=== PATIENT | male | born 1940 | race Caucasian/White ===

== ENCOUNTER 2019-04-13 14:56 | Outpatient (CLI) | payer MEDICARE, BC ==
--- NOTE | 2019-04-13 15:28 | RAD ---
PA AND LATERAL CHEST: HISTORY: Dyspnea. FINDINGS: The heart size is mildly enlarged. The aorta is tortuous. Chronic changes are seen in the lung amin . No lobar consolidation, pneumothoraces, roldan pulmonary edema or pleural effusions are identified. There are degenerative changes in the spine. POS: [facility]
== END 2019-04-13 14:57 | disposition home or self-care (01) ==
LOC: RAD 14:56
PROVIDERS: ATTEND Internal Medicine Pulmonary Disease
DX: R06.00 Dyspnea, unspecified (principal)
CPT/HCPCS: 71046

== ENCOUNTER 2019-05-12 12:09 | Outpatient (CLI) | payer MEDICARE, BC ==
--- NOTE | 2019-05-12 15:03 | PET ---
Radionucleotide PET scan with CT attenuation correction HISTORY: Lung nodule. FINDINGS: Physiologic uptake of radiotracer throughout the enteric system and along each urinary trac t. The oval well-circumscribed soft tissue density nodule at the medial aspect of the left lung apex is 2.1 cm x 1.5 cm greatest diameters. Maximum SUV 28.3. Just to the left of the aortic arch, an oval well-circumscribed lymph node is 2.0 cm x 1.4 cm greates t diameters. Maximum SUV 25.8. No other hypermetabolic lung lesions or mediastinal lymph nodes apparent. At the right inguinal lymph node chain, reactive appearing lymph nodes are present. One of the deep r ight inguinal lymph nodes measures up to 1.8 cm greatest length on the axial images and shows a maximum SUV of 3.4. Adrenal glands are unremarkable without hypermetabolic activity. Nondiagnostic CT attenuation correction images show scattered areas of peripheral pleural pleural thi ckening and calcification and scattered areas of scarring involving each lung. Small hiatal hernia. Diverticula arise from the colon without adjacent inflammation. IMPRESSION: Left upper lobe malignancy with hypermetabolic prevascular lymph node of the mediastinum. The mildly hypermetabolic right inguinal lymph node would be an unusual location for a single distant metastatic focus. The hypermetabolic activity is more likely reactive in nature. Atherosclerosis. Diverticulosis. No evidence of diverticulitis.
== END 2019-05-12 12:10 | disposition home or self-care (01) ==
LOC: PET 12:09
PROVIDERS: ATTEND Internal Medicine Pulmonary Disease
DX: C34.12 Malignant neoplasm of upper lobe, left bronchus or lung (principal); I70.90 Unspecified atherosclerosis; K57.90 Diverticulosis of intestine, part unspecified, without perforation or abscess without bleeding
CPT/HCPCS: 78815; A9552

== ENCOUNTER 2019-06-24 07:14 | Outpatient (CLI) | payer MEDICARE, BC ==
[2019-06-24 12:25] LABS: Hemoglobin 15.7 g/dL (14.0-18.0); Mean Corpuscular HGB CONC 32.4 g/dL (32.0-36.0); Mean Corpuscular Volume 86.5 fL (78.0-98.0); Mean Platelet Volume 7.8 fL (7.4-10.4); Platelet Count 278 thou/uL (130-400); RBC Distribution Width 14.8 % (11.5-14.5); Red Blood Cell (RBC) Count 5.62 mill/uL (4.70-6.10); White Blood Cell (WBC) Count 9.8 thou/uL (4.8-10.8)
[2019-06-24 12:44] LABS: Anion Gap 11 mmol/L (10-20); BUN (Urea Nitrogen) 13 mg/dL (8.4-25.7); Calc. Creatinine Clearance 0 mL/min (70-130); Calcium 9.2 mg/dL (7.8-10.44); Carbon Dioxide 29 mmol/L (23-31); Chloride 103 mmol/L (98-107); Estimated GFR-MDRD 84; Glucose 94 mg/dL (83-110); Potassium 4.3 mmol/L (3.5-5.1); Sodium 139 mmol/L (136-145)
--- NOTE | 2019-06-27 08:48 | EKG ---
Test Reason : Blood Pressure : / mmHG Vent. Rate : 065 BPM Atrial Rate : 065 BPM P-R Int : 214 ms QRS Dur : 076 ms QT Int : 420 ms P-R-T Axes : 087 085 074 degrees QTc Int : 436 ms Sinus rhythm with 1st degree A-V block Otherwise normal ECG Confirmed by ELISSA COHEN ([id number]) on 06/27/2019 8:48:28 AM Referred By: JEROMY Confirmed By:ELISSA COHEN
== END 2019-06-24 07:15 | disposition home or self-care (01) ==
LOC: LABBT 07:14
PROVIDERS: ATTEND Thoracic Surgery (Cardiothoracic Vascular Surgery)
DX: Z01.818 Encounter for other preprocedural examination (principal); R91.8 Other nonspecific abnormal finding of lung field
CPT/HCPCS: 80048; 85027; 93005; 93010

== ENCOUNTER 2019-06-24 11:30 | Inpatient (IN) | payer MEDICARE, BC ==
[2019-06-27] MEDS ORDERED: Clindamycin/D5W 900 mg/50 ml Premix Bag ONE (06:30)
[2019-06-27] MEDS ORDERED: Levofloxacin 500 mg/D5W 100 ml Premix Bag ONE (06:30)
[2019-06-27] MEDS ORDERED: Fentanyl 250 MCG/5 ML VIAL ONE (07:28)
[2019-06-27] MEDS ORDERED: Fentanyl 100 MCG/2 ML VIAL ONE ×2 (07:35→13:26)
[2019-06-27] MEDS ORDERED: Rocuronium Bromide 50 MG/5 ML VIAL ONE (09:47)
[2019-06-27] MEDS ORDERED: Lidocaine 1% PF 5 ML VIAL ONE (09:47)
[2019-06-27] MEDS ORDERED: PROPOFOL 200 MG/20 ML VIAL ONE (09:47)
[2019-06-27] MEDS ORDERED: PHENYLEPHRINE-NS 100 MCG/ML 10 ML SYRINGE ONE (09:47)
[2019-06-27] MEDS ORDERED: Dexamethasone 20 MG/5 ML VIAL ONE (09:47)
[2019-06-27] MEDS ORDERED: Ondansetron PF 4 MG/2 ML Vial ONE (09:47)
[2019-06-27] MEDS ORDERED: EPHEDRINE 25 MG/5 ML SYRINGE ONE (09:47)
[2019-06-27] MEDS ORDERED: Esmolol 100 MG/10 ML VIAL ONE (09:47)
[2019-06-27] MEDS ORDERED: Bupivacaine 0.25% HCL 30 ML VIAL ONE (11:40)
[2019-06-27] MEDS ORDERED: Ropivacaine 0.2% HCl/PF 20 ML ONE (11:41)
[2019-06-27] MEDS ORDERED: Zolpidem Tartrate 5 MG TAB PO PRN ×3 (12:36→13:16)
[2019-06-27] MEDS ORDERED: diphenhydrAMINE 50 MG/ML VIAL IVP PRN ×3 (12:36→13:16)
[2019-06-27] MEDS ORDERED: Naloxone HCl 0.4 mg/ml Vial IVP PRN ×6 (12:36→13:16)
[2019-06-27] MEDS ORDERED: Promethazine HCl 25 MG SUPP PR PRN ×3 (12:36→13:16)
[2019-06-27] MEDS ORDERED: diphenhydrAMINE 50 MG/ML VIAL IM PRN ×3 (12:36→13:16)
[2019-06-27] MEDS ORDERED: diphenhydrAMINE 25 MG CAP PO PRN ×2 (12:36→13:14)
[2019-06-27] MEDS ORDERED: Bupivacaine 0.25% 10 ML VIAL EPIDURAL PRN ×3 (12:36→13:16)
[2019-06-27] MEDS ORDERED: traMADol HCl 50 MG TAB PO PRN (12:36)
[2019-06-27] MEDS ORDERED: Promethazine HCl 25 MG/ML VIAL IM PRN ×3 (12:36→13:16)
[2019-06-27] MEDS ORDERED: Ondansetron PF 4 MG/2 ML Vial IVP PRN ×4 (12:36→13:16)
[2019-06-27] MEDS ORDERED: Norepinephrine 8 MG/0.9% NS 250 ML IVPB PRN (12:38)
[2019-06-27] MEDS ORDERED: HYDROcodone/Acetaminophen 5/325 mg Tablet PO PRN ×2 (12:38)
[2019-06-27] MEDS ORDERED: Phenylephrine 10 MG/NS 250 ML 250 ML IVPB PRN (12:38)
[2019-06-27] MEDS ORDERED: Fentanyl 5 mcg/Bupivacaine 0.075% Cassette 100 ML EPIDURAL SCH ×3 (12:45→13:30)
[2019-06-27] MEDS ORDERED: Communication Order-Pharmacy FS SCH ×6 (12:45→13:30)
--- NOTE | 2019-06-27 12:57 | RAD ---
EXAM: Single view of the chest HISTORY: Status post thoracotomy for a left lung mass COMPARISON: 04/13/2019 FINDINGS: Single view of the chest shows an enlarged cardiomediastinal silhouette. There are 2 left-s ided chest tubes. There is a small left pleural effusion. No pneumothorax is seen. The bones are unremarkable. IMPRESSION: Status post left thoracotomy without evidence of pneumothorax.
--- NOTE | 2019-06-27 15:08 | OP ---
DATE OF PROCEDURE: 06/27/2019 PREOPERATIVE DIAGNOSIS: Left upper lobe mass. 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 ANESTHESIA: General. ESTIMATED BLOOD LOSS: 150. FINDINGS: The patient had complete pleural symphysis, requiring mobilization of about 80% of the lung to allow the procedure to be completed. The lower lobe appeared to be smaller than normal. The mass in the mediastinum was adherent to the phrenic nerve, which was preserved. DESCRIPTION OF PROCEDURE: After adequate anesthesia had been obtained, the patient was placed in the right lateral decubitus position with a double-lumen endotracheal tube. Following prepping and draping, a small incision was made for a trocar; however, I was not comfortable with the clamp entering the pleural space, and for this reason, I converted this to a muscle-sparing posterior lateral thoracotomy. Given the upper lobe lesion, it was elected to go through the 5th intercostal space. Upon entering the intercostal space, the lung was completely adherent. A Kittner was used to mobilize the lung enough to allow placement of a retractor, where a considerable amount of time was spent mobilizing the upper lobe from the surrounding chest wall. After that had been done, attempts to begin mobilizing the lower lobe were begun; however, it was rather densely adherent to the lateral chest wall. It was elected to make another thoracotomy incision through a separate interspace without going through a separate skin incision, and about the 7th or 8th intercostal space was then entered and the lung was then mobilized here using a Kittner. Ultimately, the costophrenic angle was not completely mobilized, but the remainder of the lung was mobilized and the fissures were mobilized. A wedge resection of the mass was performed and this returned adenocarcinoma. At this time, it was not felt that a formal lobectomy would be in his best interest given the rather small residual lower lobe as well as the fact that he had apparent metastasis to the L4 region. The L4 nodes were mobilized and the mass was removed from adjacent to the phrenic nerve, avoiding transection of the phrenic nerve. Following this, a separate 3 firings of the stapler was used to get a further margin around the wedge resection, essentially sparing the lingula. Two chest tubes were then placed, following which the primary thoracotomy incision was reapproximated with interrupted [id number] double-stranded catgut sutures after ensuring good hemostasis within the chest and irrigating the area with water. Muscle layers were loosely reapproximated and the subcutaneous tissue and skin were closed in layers. Job ID: [id number]
[2019-06-27] MEDS: Clindamycin/D5W 900 MG in Premix Bag 1 BAG IVPB SCH ×2 (15:41→21:43)
[2019-06-27] MEDS: diphenhydrAMINE 25 MG CAP PO PRN ×2 (15:41→23:08)
[2019-06-27 16:28] VITALS: BMI 28.3
[2019-06-28] MEDS: Clindamycin/D5W 900 MG in Premix Bag 1 BAG IVPB SCH ×2 (02:00→07:20)
[2019-06-28 03:34] LABS: #Lymphocytes 2.2 thou/uL (1.20-3.40); #Monocytes 1.8 thou/uL (0.11-0.59); #Neutrophils 11.3 thou/uL (1.40-6.50); %Lymphocytes 14.4 % (21.0-51.0); %Monocytes 11.7 % (0.0-10.0); %Neutrophils 73.8 % (42.0-75.0); Hemoglobin 14.1 g/dL (14.0-18.0); Mean Corpuscular HGB CONC 32.6 g/dL (32.0-36.0); Mean Corpuscular Hemoglobin 28.7 pg (27.0-31.0); Platelet Count 221 thou/uL (130-400); RBC Distribution Width 14.9 % (11.5-14.5); Red Blood Cell (RBC) Count 4.92 mill/uL (4.70-6.10); White Blood Cell (WBC) Count 15.3 thou/uL (4.8-10.8)
[2019-06-28 03:53] LABS: Anion Gap 12 mmol/L (10-20); BUN (Urea Nitrogen) 12 mg/dL (8.4-25.7); Calc. Creatinine Clearance 97 mL/min (70-130); Calcium 8.3 mg/dL (7.8-10.44); Carbon Dioxide 26 mmol/L (23-31); Chloride 103 mmol/L (98-107); Estimated GFR-MDRD 84; Glucose 105 mg/dL (83-110); Potassium 4.3 mmol/L (3.5-5.1); Sodium 137 mmol/L (136-145)
[2019-06-28] MEDS: diphenhydrAMINE 25 MG CAP PO PRN (07:40)
[2019-06-28] MEDS ORDERED: Prevnar 13-Val Conj/PF 0.5 ML SYRINGE IM ONE (09:00)
[2019-06-28] MEDS: Benzonatate 100 MG CAP PO SCH ×3 (09:11→21:22)
--- NOTE | 2019-06-28 09:33 | RAD ---
PORTABLE CHEST: Date: 06/28/2019 HISTORY: Post thoracotomy. CCU follow-up. COMPARISON: 06/27/2019. FINDINGS: The two left chest tubes are unchanged. Subcutaneous emphysema over the left chest is unchanged. Stre aky atelectasis in the left lung base again noted. Right lung remains clear and hyperexpanded. IMPRESSION: No acute interval change. POS: [facility]
--- NOTE | 2019-06-28 10:23 | CON ---
DATE OF CONSULTATION: HISTORY OF PRESENT ILLNESS: This gentleman underwent a thoracotomy yesterday, abnormal PET scan dated 05/12/2019 showed a 2 x 1.5 cm lesion in the left apex, not accessible through a bronch or through a CT-guided biopsy in a 2 x 1.5 cm lymph node in the area of the aortic arch. He underwent left upper lobectomy and resection of his mediastinum shows adenocarcinoma. Postop in the ICU. He was initially seen in April 2019 for abnormal x-ray, which do reveal a right lower lobe infiltrate. Subsequently, a CT scan was done, which showed a lesion now in the left lung. Not in the right lung. He received antibiotics prior to his visit in April. When I repeated his chest x-ray in April, I was not able to see any infiltrates. Eventually, CT did show a new left apex lesion. The patient is a two pack-a-day smoker for 50 years. He has quit smoking about seven years ago. PAST MEDICAL HISTORY: Mild COPD, TIA, hypertension, high cholesterol, and reflux. PREVIOUS SURGERIES: Cataract, right knee, retinal surgery, and thoracotomy. HOME MEDICINES: 1. Plavix 75. 2. Losartan. 3. Cozaar 50. 4. Pravastatin 40. ALLERGIES: PENICILLIN AND TETRACYCLINE. SOCIAL HISTORY: Alcohol daily. Smoker as noted. REVIEW OF SYSTEMS: Otherwise negative. Postop in the ICU. PHYSICAL EXAMINATION: VITAL SIGNS: Saturations 93%, pulse 110, respirations 20, and blood pressure 130/80. CHEST: Reveals decreased breath sounds. No wheezing or crackles. CARDIAC: Normal S1 and S2. No gallops. ABDOMEN: No masses. LABORATORY DATA: Unremarkable. ASSESSMENT: Status post lobectomy, adenocarcinoma. PLAN: Await final path. Probably we need input from Oncology. Supportive care and PT. Job ID: [id number]
[2019-06-28] MEDS ORDERED: HYDROcodone/Acetaminophen 5/325 mg Tablet PO PRN (10:59)
[2019-06-28] MEDS ORDERED: traMADol HCl 50 MG TAB PO PRN (11:00)
[2019-06-28] MEDS: Bupivacaine 10 ML in Sodium Chloride 0.9% 90 ML EPIDURAL SCH (12:22)
--- NOTE | 2019-06-28 14:42 | CT ---
EXAM: CT brain without contrast HISTORY: Left-sided weakness and numbness COMPARISON: None TECHNIQUE: Multiple contiguous axial images were obtained and a CT of the brain without contrast. FINDINGS: There are scattered hypodensities in the subcortical and periventricular white matter consi stent with small vessel ischemic disease. There is no evidence of hydrocephalus, intracranial hemorrhage, or extra-axial fluid collection. The calvarium and overlying soft tissues are unremarkable. The visualized paranasal sinuses and masto id air cells are well aerated. IMPRESSION: No evidence of acute intracranial abnormality
[2019-06-28] MEDS: Acetaminophen 325 MG TAB PO PRN (15:09)
[2019-06-28] MEDS: traMADol HCl 50 MG TAB PO PRN ×2 (15:09→21:23)
[2019-06-28] MEDS ORDERED: Aspirin 81 mg Enteric Coated Tablet PO SCH (15:45)
[2019-06-28] MEDS: Ketorolac Tromethamine 30 MG/ML VIAL IVP PRN (17:41)
[2019-06-28] MEDS: BEER 1 CAN PO SCH (17:42)
[2019-06-29] MEDS: Ketorolac Tromethamine 30 MG/ML VIAL IVP PRN ×3 (01:14→16:29)
[2019-06-29] MEDS: Acetaminophen 325 MG TAB PO PRN ×2 (01:14→16:28)
[2019-06-29] MEDS: Bupivacaine 10 ML in Sodium Chloride 0.9% 90 ML EPIDURAL SCH ×2 (01:15→14:54)
[2019-06-29] MEDS: traMADol HCl 50 MG TAB PO PRN ×2 (03:58→12:59)
--- NOTE | 2019-06-29 07:49 | RAD ---
EXAM: CHEST ONE VIEW HISTORY: Post left thoracotomy with segmentectomy. Chest tubes in place. COMPARISON: 06/28/2019 FINDINGS: 2 left-sided thoracostomy tubes remain in place and unchanged in position. Pleural-based density opal g the lateral left chest is seen from the left lung apex to the left lung base. Volume loss at the left lung base is again present. Mild atelectasis right lung base is present. Cardiac silhouette juan j ins enlarged. Subcutaneous emphysema left lateral chest and in the supraclavicular region are present on this exam which has increased from prior study. Cardiac silhouette remains enlarged. No ot her interval change. IMPRESSION: Left-sided thoracostomy tubes remain in place with pleural-based density along the left lateral chest with findings most likely related to volume loss left lung base and patchy parenchymal density left upper lung zone which also could be related to volume loss. Increase in subcutaneous emphysema l ateral left chest is present.
--- NOTE | 2019-06-29 08:19 | PRG ---
DATE OF SERVICE: 06/29/2019 SUBJECTIVE: Kalpesh Hayes is status post thoracotomy and lobectomy. He is having issues with his coughing, but denies obvious shortness of breath. OBJECTIVE: VITAL SIGNS: His saturations are 94% on room air, temperature 97, blood pressure 145/75, respiratory rate 18, and pulse 80. CHEST: No wheezing or crackles. CARDIAC: Normal S1 and S2. No gallops. ABDOMEN: No masses. DIAGNOSTIC DATA: X-ray shows stable findings of loss of volume in the left lung. ASSESSMENT: 1. Status post lobectomy. 2. Adenocarcinoma. 3. Chronic obstructive pulmonary disease. 4. Mild cough. PLAN: Antitussive medication. Continue supportive care, PT. If his cough does not improve, low-dose steroids. We will follow. Job ID: [id number]
[2019-06-29] MEDS: Aspirin 81 mg Enteric Coated Tablet PO SCH (08:53)
[2019-06-29] MEDS: Benzonatate 100 MG CAP PO SCH ×3 (08:56→20:45)
[2019-06-29] MEDS: Enoxaparin Sodium 30 MG/0.3 ML SYRINGE SC SCH (08:57)
[2019-06-29] MEDS: BEER 1 CAN PO SCH ×3 (09:25→18:35)
[2019-06-29] MEDS ORDERED: Losartan 25 MG TAB PO SCH (14:30)
[2019-06-29] MEDS: hydrALAZINE 20 MG/ML VIAL SLOW IVP PRN (14:54)
[2019-06-29] MEDS: Mometasone/Formoterol 120 PUFF INHALER INH SCH (19:30)
[2019-06-29] MEDS: Metoprolol Tartrate 25 MG TAB PO SCH (20:45)
[2019-06-29] MEDS: Atorvastatin Calcium 10 MG TAB PO SCH (20:45)
[2019-06-29] MEDS: HYDROcodone/Acetaminophen 5/325 mg Tablet PO PRN (20:46)
[2019-06-30] MEDS: diphenhydrAMINE 25 MG CAP PO PRN ×2 (01:05→23:03)
[2019-06-30] MEDS: Bupivacaine 10 ML in Sodium Chloride 0.9% 90 ML EPIDURAL SCH ×3 (01:05→22:54)
[2019-06-30] MEDS: HYDROcodone/Acetaminophen 5/325 mg Tablet PO PRN ×4 (01:06→23:04)
--- NOTE | 2019-06-30 07:46 | RAD ---
XR Chest 1 View Portable History: Thoracotomy Comparison: Radiograph prior day Findings: The left-sided thoracostomy tubes are similar. Simultaneous emphysema is similar. Volume lo ss left hemithorax with small effusion. Mild volume loss of the right lung. Cardiac silhouette is similar. Impression: Similar examination of the chest.
[2019-06-30] MEDS: Mometasone/Formoterol 120 PUFF INHALER INH SCH ×2 (08:17→19:42)
[2019-06-30] MEDS ORDERED: Losartan 25 MG TAB PO SCH (09:00)
[2019-06-30] MEDS: BEER 1 CAN PO SCH ×3 (09:40→17:47)
[2019-06-30] MEDS: Aspirin 81 mg Enteric Coated Tablet PO SCH (09:42)
[2019-06-30] MEDS: Benzonatate 100 MG CAP PO SCH ×3 (09:42→20:43)
[2019-06-30] MEDS: Metoprolol Tartrate 25 MG TAB PO SCH ×2 (09:44→20:43)
[2019-06-30] MEDS: Enoxaparin Sodium 30 MG/0.3 ML SYRINGE SC SCH (09:52)
--- NOTE | 2019-06-30 10:55 | PRG ---
DATE OF SERVICE: 06/30/2019 OBJECTIVE: GENERAL: A 78-year-old gentleman. VITAL SIGNS: This morning, temperature 97, pulse 68 respiratory rate 18, and blood pressure 157/87. CHEST: Bilateral rhonchi, crackles, left greater than right. CARDIAC: Normal S1 and S2. No gallops. ABDOMEN: No masses. ASSESSMENT: Status post left upper lobectomy, adenocarcinoma, and mild chronic obstructive pulmonary disease. PLAN: Continue supportive care, PT. Home when chest tube is out. Discussed with Dr. Buchanan, who is going to see the patient regarding lung cancer and appropriate intervention. Job ID: [id number] MTDD
[2019-06-30] MEDS: traMADol HCl 50 MG TAB PO PRN (12:23)
[2019-06-30] MEDS: hydrALAZINE 20 MG/ML VIAL SLOW IVP PRN ×3 (15:13→18:39)
[2019-06-30] MEDS: Atorvastatin Calcium 10 MG TAB PO SCH (20:43)
[2019-07-01] MEDS: hydrALAZINE 20 MG/ML VIAL SLOW IVP PRN (00:13)
[2019-07-01] MEDS ORDERED: BEER 1 CAN PO SCH (00:30)
[2019-07-01] MEDS ORDERED: Lorazepam 2 MG/ML VIAL SLOW IVP SCH ×2 (00:30→22:00)
[2019-07-01] MEDS: Mometasone/Formoterol 120 PUFF INHALER INH SCH ×2 (06:33→19:57)
--- NOTE | 2019-07-01 07:51 | RAD ---
CHEST 1 VIEW: INDICATION: Followup thoracotomy. COMPARISON: Prior exam dated 06/30/2019 at 3:43 a.m. FINDINGS: Left-sided thoracotomy tubes are unchanged. Left-sided pleural collection is unchanged. There are a reas of scattered suspected subsegmental volume in the left lung are similar-appearing. Right lung r emains clear. Cardiomegaly is stable-appearing. No pneumothorax is evident. Subcutaneous emphysema overlying the left chest wall and left neck base persists. Osseous structures unchanged. IMPRESSION: Stable exam. POS: [facility]
--- NOTE | 2019-07-01 08:41 | PRG ---
DATE OF SERVICE: 07/01/2019 SUBJECTIVE: Kalpesh Hayes was little bit of encephalopathic last night. X-ray still shows stable findings with left-sided chest tube in place. He denies any difficulty breathing. OBJECTIVE: VITAL SIGNS: Temperature 98, pulse 70, respiratory rate 16, sats 95% on room air, and blood pressure 168/78. CHEST: Rhonchi. Crackles. CARDIAC: Normal S1-S2. No gallops. ABDOMEN: No masses. IMPRESSION: Chronic obstructive pulmonary disease, mild, status post thoracotomy, adenocarcinoma, as noted. PLAN: PT, supportive care. We will follow. Job ID: [id number]
[2019-07-01] MEDS: HYDROcodone/Acetaminophen 5/325 mg Tablet PO PRN ×2 (08:54→17:50)
[2019-07-01] MEDS: Benzonatate 100 MG CAP PO SCH ×3 (08:55→20:57)
[2019-07-01] MEDS: Losartan 25 MG TAB PO SCH (08:55)
[2019-07-01] MEDS: Amlodipine 5 MG TAB PO SCH (08:55)
[2019-07-01] MEDS: Enoxaparin Sodium 30 MG/0.3 ML SYRINGE SC SCH (08:56)
[2019-07-01] MEDS: Aspirin 81 mg Enteric Coated Tablet PO SCH (08:56)
[2019-07-01] MEDS: Metoprolol Tartrate 25 MG TAB PO SCH ×3 (08:56→20:57)
[2019-07-01] MEDS ORDERED: Diazepam 5 MG TAB PO PRN (09:07)
[2019-07-01] MEDS ORDERED: Diazepam 5 MG TAB PO SCH (09:15)
[2019-07-01] MEDS ORDERED: Thiamine HCl 200 MG/2 ML VIAL IM SCH (09:15)
[2019-07-01] MEDS: traMADol HCl 50 MG TAB PO PRN (10:15)
[2019-07-01] MEDS: [UNRECOGNIZED DRUG - OTHER] PO SCH ×3 (10:51→19:01)
[2019-07-01] MEDS: BEER 1 CAN PO SCH (11:36)
[2019-07-01] MEDS: Bupivacaine 10 ML in Sodium Chloride 0.9% 90 ML EPIDURAL SCH (12:14)
--- NOTE | 2019-07-01 13:46 | PQF ---
CLINICAL DOCUMENTATION IMPROVEMENT CLARIFICATION FORM: ICD-10 Updated PLEASE DO AN ADDENDUM TO THE PROGRESS NOTE WITH ANY DOCUMENTATION UPDATES OR ADDITIONS AND CARRY THROUGH TO DC SUMMARY. THANK YOU. DATE: 07/01/19 ATTN : DR. NAVARRO Please exercise your independent, professional judgment in responding to the clarification form. Clinical indicators are provided on the bottom of this form for your review Please check appropriate box(s): [ ] Encephalopathy: Type: [ ] Acute [ ] Subacute [ ] Chronic Etiology: [ ] Hypertensive [ ] Metabolic [ ] Toxic [ ] Hepatic with Coma [ ] Hepatic w/o Coma [ ] Hypoxic [ ] Septic [ ] Wernickes [ ] Drug induced: [ ] Unspecified [ ] in the setting of underlying dementia [ ] Other (please specify) [ ] Transient Alteration of Awareness [ ] Other diagnosis [ ] Unable to determine In addition, please specify: Present on Admission (POA): [ ] Yes [ ] No [ ] Unable to determine For continuity of documentation, please document condition throughout progress notes and discharge summary. Thank You. CLINICAL INDICATORS - SIGNS / SYMPTOMS / LABS / RESULTS AND LOCATION IN EMR PROGRESS NOTE 07/01: "ENCEPHALOPATHIC LAST NIGHT" NURSES NOTE 06/05: "PT BECOMING INCREASINGLY IMPULSIVE AND CALLED AND SAID HE IS HALLUCINATING A LOT MORE." RISKS: ADENOCARCINOMA WITH METASTASIS (OP NOTE 06/27) ALCOHOL USE (NURSING PREOP RECORD) HYPERTENSION (NURSING PREOP RECORD) TREATMENT: ATIVAN IV NOW DOSE (SEE JUL 03) WHISKEY TID WITH MEALS (JUL) VALIUM PRN (SEE JUL 03-) [employer] Winform Viewer (This form is maintained as a part of the permanent medical record) 2014 [employer]. All Rights Reserved ARSH [email or web address] Office: [phone] [facility]
[2019-07-01] MEDS: Docusate 100 MG CAP PO SCH (20:57)
[2019-07-01] MEDS: Atorvastatin Calcium 10 MG TAB PO SCH (20:58)
--- NOTE | 2019-07-01 21:44 | CON ---
DATE OF CONSULTATION: REASON FOR CONSULTATION: Adenocarcinoma of the lung. HISTORY OF PRESENT ILLNESS: Mr. Hayes is a 78-year-old gentleman with a history of alcohol use and smoking, who had an abnormal x-ray in April 2019. He was referred to Dr. Martinez, who performed a CT scan, it showed a lesion in the left lung. He then underwent a PET scan in early May. There was an oval well-circumscribed soft tissue density in the medial aspect of the left lung apex measuring 2.1 x 1.5 cm, SUV of 28.3, just left to the aortic arch was an oval well-circumscribed lymph node measuring 2.0 x 1.4 cm. SUV was 25.8. There were no other hypermetabolic lung lesions or mediastinal lymph nodes. There was an inguinal lymph node measuring 1.8 cm with SUV of 3.4 and felt to be reactive. The patient was admitted for thoracotomy and wedge resection. He had a complete pleural symphysis requiring mobilization of about 80% of the lung. The mass was the phrenic nerve, which was preserved. He is currently recovering from his surgery. He has a chest tube in place. His pathology revealed invasive adenocarcinoma, papillary prominent tumor measured 2.3 cm in greatest dimension. It invaded the visceral pleura, it was a pT2 lesion. He had an L4 lymph node that was negative for malignancy. Periaortic lymph node was replaced by metastatic adenocarcinoma. He was a pathological [id number] tumor. The patient has 100 pack-year history of smoking. He states he quit over 7 years ago. He is a daily drinker of whiskey and is in fact receiving whiskey in this facility in order to prevent DTs. He denies any complaints at this time other than constipation and pain around the chest tube site. PAST MEDICAL HISTORY: 1. Mild COPD. 2. History of TIA. 3. Hypertension. 4. High cholesterol. 5. Reflux. 6. Alcohol abuse. 7. History of tobacco use. PAST SURGICAL HISTORY: Cataract surgery, knee surgery, retinal surgery, and thoracotomy. ALLERGIES: TO PENICILLIN AND TETRACYCLINE. HOME MEDICATIONS: 1. Plavix. 2. Losartan. 3. Cozaar. 4. Pravastatin. FAMILY HISTORY: Brothers from unknown type of cancer. SOCIAL HISTORY: , lives with his spouse in [place]. 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 He did work at [employer] at one point, daily alcohol. Former smoker. REVIEW OF SYSTEMS: A 10-point review of systems is negative except for noted in HPI. PHYSICAL EXAMINATION: VITAL SIGNS: Temperature 97.6, pulse is 80, respiratory rate 14, blood pressure is 150/90. He is 92% on room air. GENERAL: This is a well-developed, well-nourished male, in no acute distress. HEENT: Normocephalic, atraumatic. Pupils are equal and reactive to light. NECK: Supple. CV: Regular rate and rhythm. LUNGS: Diminished on the left. ABDOMEN: He has a prominent abdomen with bowel sounds are positive. EXTREMITIES: No clubbing or cyanosis. SKIN: No rash. HEMATOLOGIC: No petechiae or purpura. NEUROLOGICAL: Nonfocal. PERTINENT LABS AND X-RAYS: Current WBCs 15.3, hemoglobin 14.1, hematocrit 43.3, platelet count 221,000. He has 73% neutrophils, 14% lymphocytes, 11% monocytes. Sodium is 137, potassium 4.3, chloride 103, CO2 is 26, BUN is 12, creatinine 0.88, glucose 105, calcium 8.3. Radiology, per HPI. ASSESSMENT: Invasive adenocarcinoma of the left lung with positive periaortic lymph node. DISCUSSION: The patient likely has at least stage III disease. He is a candidate for chemotherapy. It was discussed briefly with the patient. He will follow up with Dr. Ruiz in the clinic on July 13 to discuss prognosis and treatment options. Thank you for the consult. We will see him in the outpatient setting. Job ID: [id number]
[2019-07-02] MEDS: Bupivacaine 10 ML in Sodium Chloride 0.9% 90 ML EPIDURAL SCH ×2 (01:12→14:01)
[2019-07-02] MEDS ORDERED: Diazepam 5 MG TAB PO PRN (04:00)
[2019-07-02] MEDS: HYDROcodone/Acetaminophen 5/325 mg Tablet PO PRN ×2 (06:23→18:32)
[2019-07-02] MEDS: Mometasone/Formoterol 120 PUFF INHALER INH SCH ×2 (08:07→19:37)
[2019-07-02] MEDS: Polyethylene Glycol 3350 17 GM Packet PO SCH (08:35)
[2019-07-02] MEDS: Multivitamin W/ Minerals 1 TAB PO SCH (08:36)
[2019-07-02] MEDS: Benzonatate 100 MG CAP PO SCH ×3 (08:36→20:45)
[2019-07-02] MEDS: Magnesium Oxide 400 MG TAB PO SCH (08:36)
[2019-07-02] MEDS: Losartan 25 MG TAB PO SCH (08:36)
[2019-07-02] MEDS: Docusate 100 MG CAP PO SCH ×2 (08:37→20:45)
[2019-07-02] MEDS: Enoxaparin Sodium 30 MG/0.3 ML SYRINGE SC SCH (08:37)
[2019-07-02] MEDS: Folic Acid 1 MG TAB PO SCH (08:37)
[2019-07-02] MEDS: Thiamine 100 MG TAB PO SCH (08:37)
[2019-07-02] MEDS: Aspirin 81 mg Enteric Coated Tablet PO SCH (08:37)
[2019-07-02] MEDS: Amlodipine 5 MG TAB PO SCH (08:37)
[2019-07-02] MEDS: Metoprolol Tartrate 25 MG TAB PO SCH ×2 (08:37→20:45)
[2019-07-02] MEDS: [UNRECOGNIZED DRUG - OTHER] PO SCH ×3 (08:39→16:53)
--- NOTE | 2019-07-02 10:14 | RAD ---
AP CHEST: Date: 07/02/2019 HISTORY: Thoracotomy follow-up. CCU follow-up. COMPARISON: 07/01/2019. FINDINGS: There are two left chest tubes which are unchanged. Evidence of left thoracotomy. Subcutaneous emphys christiane of the left chest. Left basilar infiltrate or atelectasis, and left effusion. Right lung appears clear. Heart is enlarged. IMPRESSION: No evidence of acute interval change. POS: [facility]
[2019-07-02] MEDS ORDERED: guaiFENesin ER 600 MG TAB PO PRN (19:03)
--- NOTE | 2019-07-02 19:04 | PRG ---
DATE OF SERVICE: 07/02/2019 SERVICE: Pulmonary Medicine. INTERVAL HISTORY: The patient's breathing is doing fantastic. Denies any current chest discomfort, nausea, vomiting, or diarrhea. He is not having any jitters or hallucination. He has sipping slowly on a glass of scotch. Otherwise, there has been no interval change to his condition. PHYSICAL EXAMINATION: VITAL SIGNS: Afebrile, pulse 80, blood pressure 145/80, respirations 18, and saturation 93% on room air. GENERAL: The patient is awake and alert, in no apparent distress. LUNGS: Wonderful air entry. Crackles are present. There is no prolonged expiratory phase or wheezing appreciated. HEART: Normal rate and regular. ABDOMEN: Soft, nontender, and nondistended. Bowel sounds are positive. MUSCULOSKELETAL: No cyanosis or clubbing. There is no pitting in the bilateral lower extremities. NEUROLOGIC: Grossly nonfocal. IMAGING DATA: Chest x-ray demonstrates two left-sided thoracostomy tubes are in place with volume loss on that side. No obvious effusions or infiltrates are present. There are diffuse increase opacifications throughout the left lung. ASSESSMENT: 1. Adenocarcinoma of the lung, status post excision with positive lymph node. 2. Chronic obstructive pulmonary disease without current exacerbation. DISCUSSION AND PLAN: The patient is doing fine from respiratory standpoint. Pulmonary will continue to follow, intermittently during this hospital stay. Dr. Martinez will resume care on Thursday, but if the patient gets into trouble through the weekend, please notify me sooner. Job ID: [id number]
[2019-07-02] MEDS: Atorvastatin Calcium 10 MG TAB PO SCH (20:45)
[2019-07-02] MEDS ORDERED: HYDROcodone/Acetaminophen 10/325 mg Tablet PO PRN (21:26)
[2019-07-03] MEDS: HYDROcodone/Acetaminophen 10/325 mg Tablet PO PRN ×2 (02:35→08:06)
[2019-07-03] MEDS: Mometasone/Formoterol 120 PUFF INHALER INH SCH (06:35)
[2019-07-03 07:22] VITALS: TEMP 98
[2019-07-03] MEDS: Polyethylene Glycol 3350 17 GM Packet PO SCH (08:01)
[2019-07-03] MEDS: [UNRECOGNIZED DRUG - OTHER] PO SCH (08:01)
[2019-07-03] MEDS: Thiamine 100 MG TAB PO SCH (08:02)
[2019-07-03] MEDS: Folic Acid 1 MG TAB PO SCH (08:02)
[2019-07-03] MEDS: Magnesium Oxide 400 MG TAB PO SCH (08:02)
[2019-07-03] MEDS: Amlodipine 5 MG TAB PO SCH (08:02)
[2019-07-03] MEDS: Multivitamin W/ Minerals 1 TAB PO SCH (08:02)
[2019-07-03] MEDS: Losartan 25 MG TAB PO SCH (08:02)
[2019-07-03] MEDS: Benzonatate 100 MG CAP PO SCH (08:02)
[2019-07-03] MEDS: Metoprolol Tartrate 25 MG TAB PO SCH (08:03)
[2019-07-03] MEDS: Aspirin 81 mg Enteric Coated Tablet PO SCH (08:03)
[2019-07-03] MEDS: Docusate 100 MG CAP PO SCH (08:03)
[2019-07-03 09:47] VITALS: BP 131/74
== END 2019-07-03 09:58 | disposition home or self-care (01) | DRG 164 ==
LOC: SURG A 06-27 06:00 → CCU 06-27 15:03 → SURG A 06-29 13:40
PROVIDERS: ADMIT Thoracic Surgery (Cardiothoracic Vascular Surgery); ATTEND Thoracic Surgery (Cardiothoracic Vascular Surgery)
PROC: 0BBG0ZZ Excision of Left Upper Lung Lobe, Open Approach (ICD-10-PCS; principal; 2019-06-27)
PROC: 0W9B00Z Drainage of Left Pleural Cavity with Drainage Device, Open Approach (ICD-10-PCS; 2019-06-27)
PROC: 07BD0ZX Excision of Aortic Lymphatic, Open Approach, Diagnostic (ICD-10-PCS; 2019-06-27)
PROC: 07B70ZX Excision of Thorax Lymphatic, Open Approach, Diagnostic (ICD-10-PCS; 2019-06-27)
DX: C34.12 Malignant neoplasm of upper lobe, left bronchus or lung (principal); C77.1 Secondary and unspecified malignant neoplasm of intrathoracic lymph nodes; G93.40 Encephalopathy, unspecified; I10 Essential (primary) hypertension; K21.9 Gastro-esophageal reflux disease without esophagitis; Z86.73 Personal history of transient ischemic attack (TIA), and cerebral infarction without residual deficits; J44.9 Chronic obstructive pulmonary disease, unspecified; Z82.3 Family history of stroke; Z98.49 Cataract extraction status, unspecified eye; Z88.0 Allergy status to penicillin; Z88.8 Allergy status to other drugs, medicaments and biological substances; Z87.891 Personal history of nicotine dependence
CPT/HCPCS: 36415; 70450; 71045; 80048; 85025; 85027; 86850; 86900; 86901; 88305; 88307; 88309; 88313; 88331; 88341; 88342; 93005; J0360; J1100; J1642; J1650; J1885; J1956; J2001; J2060; J2405; J2704; J2795; J3010; J3411; J3490; J7620; Q0163; S0020

== ENCOUNTER 2019-07-14 12:53 | Outpatient (CLI) | payer MEDICARE, BC ==
--- NOTE | 2019-07-14 13:12 | RAD ---
XR Chest Pa Lat @ [facility] HISTORY: Malignant neoplasm upper lobe, bronchus or lung COMPARISON: July 02, 2019 FINDINGS: There is been interval removal of the left-sided chest tubes. Left-sided pleural thickening is seen with the volume loss in the left hemithorax. The heart size is stable. The right lung is clear. There are degenerative changes in the spine. IMPRESSION: No radiographic evidence of acute cardiopulmonary process.
== END 2019-07-14 12:54 | disposition home or self-care (01) ==
LOC: RAD 12:53
PROVIDERS: ATTEND Thoracic Surgery (Cardiothoracic Vascular Surgery)
DX: C34.10 Malignant neoplasm of upper lobe, unspecified bronchus or lung (principal)
CPT/HCPCS: 71046

== ENCOUNTER 2019-07-26 10:41 | Day surgery (SDC) | payer MEDICARE, BC ==
[2019-07-25 13:26] VITALS: BMI 28.1
[~2019-07-26 10:41] MED LIST: Lidocaine 1% PF 5 ML VIAL ONE
[2019-07-26] MEDS ORDERED: Lidocaine 1% w/Epinephrine 1:100K 20 ML VIAL ONE (11:18)
[2019-07-26] MEDS ORDERED: Propofol 500 MG/50 ML VIAL ONE (11:58)
[2019-07-26] MEDS ORDERED: Fentanyl 100 MCG/2 ML VIAL ONE (11:58)
[2019-07-26] MEDS ORDERED: Clindamycin/D5W 900 mg/50 ml Premix Bag ONE (12:10)
--- NOTE | 2019-07-26 14:47 | OP ---
DATE OF PROCEDURE: 07/26/2019 PREOPERATIVE DIAGNOSIS: Stage III lung cancer. PROCEDURE PERFORMED: Right internal jugular MediPort. ANESTHESIA: IV sedation with local. DESCRIPTION OF PROCEDURE: After prepping and draping, the patient had 1% lidocaine with epinephrine infiltrated into the neck and over the anterior chest wall on the right. Following this, the incision was made and ultrasound-guided puncture of the jugular vein was carried out and a wire was then passed under fluoroscopy. A separate incision was then made on the anterior chest wall and a pocket created and after further lidocaine, the tunneler was advanced from the chest into the neck incision. Dilator and sheath were advanced under fluoroscopy, which total 43 seconds for the case. The catheter was then placed through the Peel-Away sheath and then withdrawn into the superior vena cava after the sheath. The catheter was then dissected out slightly in the neck to allow it to lie in a nice curve. Following this, the catheter was connected to the MediPort, which was placed in the pocket, aspirated and then flushed. The wounds were then closed in layers and the patient was to be taken to the Day Stay. Job ID: [id number]
== END 2019-07-26 14:05 | disposition home or self-care (01) ==
LOC: SDC 10:41
PROVIDERS: ATTEND Thoracic Surgery (Cardiothoracic Vascular Surgery)
PROC: 0JH63WZ Insertion of Totally Implantable Vascular Access Device into Chest Subcutaneous Tissue and Fascia, Percutaneous Approach (ICD-10-PCS; principal; 2019-07-26)
PROC: 02HV33Z Insertion of Infusion Device into Superior Vena Cava, Percutaneous Approach (ICD-10-PCS; 2019-07-26)
DX: C34.10 Malignant neoplasm of upper lobe, unspecified bronchus or lung (principal); I10 Essential (primary) hypertension; E78.00 Pure hypercholesterolemia, unspecified; K21.9 Gastro-esophageal reflux disease without esophagitis; J44.9 Chronic obstructive pulmonary disease, unspecified; M19.90 Unspecified osteoarthritis, unspecified site; Z86.73 Personal history of transient ischemic attack (TIA), and cerebral infarction without residual deficits; Z87.891 Personal history of nicotine dependence; Z79.1 Long term (current) use of non-steroidal anti-inflammatories (NSAID); Z79.82 Long term (current) use of aspirin; Z79.899 Other long term (current) drug therapy; Z88.0 Allergy status to penicillin; Z88.1 Allergy status to other antibiotic agents
CPT/HCPCS: 36561; 80048; 85027; C1788; J1642; J2001; J2704; J3010; J3490

== ENCOUNTER 2019-08-16 16:08 | Inpatient (IN) | payer MEDICARE, BC ==
[2019-08-16] MEDS ORDERED: Sodium Chloride 0.9% 1,000 ML IV SCH ×2 (19:00→20:00)
[2019-08-16] MEDS ORDERED: Dextrose 50% Abboject 50 ML SYRINGE SLOW IVP SCH (19:46)
[2019-08-16] MEDS ORDERED: Insulin Regular 300 UNITS/3 ML VIAL IVP SCH (19:46)
[2019-08-16] MEDS ORDERED: Calcium Gluconate 4.6 MEQ in Sodium Chloride 0.9% 100 ML IVPB SCH (19:51)
--- NOTE | 2019-08-16 21:12 | PDOC.HHP ---
Hospitalist HPI - History of Present Illness decreased urination History of Present Illness: 78yo M w/ MHx of stage III lung cancer (diagnosed in 03/2020) s/p chemotherapy ( started two weeks ago) presents for reduced urine output. Patient started chemotherapy two weeks ago and over the past week noticed that his urine output progressively decreased. Today, went to the oncology clinic and was found to have severely reduced renal function compared to july, so was sent to the ED on encounter, lying comfortably in bed and has no complaints. ED Course: In the ED, was found to have MARYLOU with elevated potassium. was started on normal saline and admitted to Telemetry. Hospitalist ROS - Review of Systems Constitutional: denies: fever, chills, sweats, weakness, malaise, other Eyes: denies: pain, vision change, conjunctivae inflammation, eyelid inflammation, redness, other ENT: denies: ear pain, ear discharge, nose pain, nose discharge, nose congestion , mouth pain, mouth swelling, throat pain, throat swelling, other Respiratory: denies: cough, dry, shortness of breath, hemoptysis, SOB with excertion, pleuritic pain, sputum, wheezing, other Cardiovascular: denies: chest pain, palpitations, orthopnea, paroxysmal noc. dyspnea, edema, light headedness, other Gastrointestinal: denies: nausea, vomiting, abdominal pain, diarrhea, constipation, melena, hematochezia, other Genitourinary: reports: retention. denies: dysuria, frequency, incontinence, hematuria Skin: denies: rash, lesions, jason, bruising, other Neurological: denies: weakness, numbness, incoordination, change in speech, confusion, seizures, other Hospitalist History - Past Medical History Source: patient Cardiac: reports: HTN, Hyperlipidemia Heme/Onc: reports: Cancer (stage III lung cancer) Renal/: reports: Benign prostatic enlarg.. denies: Chronic renal insuff, Chronic renal failure, Hematuria Endocrine: denies: Diabetes, Hyperthyroidism, Hypothyroidism - Past Surgical History Past Surgical History: reports: Cataract Removal - Social History Smoking Status: Former smoker (about 60 pack years. 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, multiple glasses daily) Drugs: reports: none - Exam General Appearance: NAD, awake alert Eye: PERRL, scleral icterus Neck: no JVD Heart: RRR, no murmur, no gallops, no rubs, normal peripheral pulses Respiratory: CTAB, no wheezes, no rales, no ronchi, normal chest expansion, no tachypnea, normal percussion Gastrointestinal: soft, non-tender, normal bowel sounds, no palpable masses, no hepatomegaly, no splenomegaly, no bruit Gastrointestinal - other findings: mildly distended Extremities: no edema Neurological: cranial nerve grossly intact, normal sensation to touch, no weakness, no focal deficits, no new deficit Psychiatric: normal affect, normal behavior, A&O x 3 Hospitalist Results - EKG Interpretation EKG: EKG showing sinus rhythm with peaked T-waves Hospitalist H&P A/P - Problem (1) Acute renal failure Status: Acute Assessment and Plan: oliguric MARYLOU chemotherapy unknown; will obtain records renal function severely impaired; normal function in July plan: -urinalysis with microscopy -fractional sodium -gentle IVF; patient currently euvolemic but oliguric; if becomes hypervolemic will stop fluids and diurese -if ATN, may be few week before renal function improves -consult nephrology (2) Lung cancer Code(s): C34.90 - MALIGNANT NEOPLASM OF UNSP PART OF UNSP BRONCHUS OR LUNG Status: Acute Assessment and Plan: will obtain records regarding chemotherapy (3) Hypertension Code(s): I10 - ESSENTIAL (PRIMARY) HYPERTENSION Status: Acute Assessment and Plan: on losartan at home; held due to MARYLOU currently normotensive plan: avoid hypotension resulting in reduced renal perfusion if becomes hypertensive, start amlodipine 5mg PO qd (4) BPH (benign prostatic hyperplasia) Code(s): N40.0 - BENIGN PROSTATIC HYPERPLASIA WITHOUT LOWER URINRY TRACT SYMP Status: Acute Assessment and Plan: -was diagnosed with prostate enlargement but wasnt taking medication for it -post void and if necessary bladder scan with straight cath for > 400cc - Plan Plan: disposition/PPx -full code. is surrogate DVT PPx: enoxeparin GI PPx: no indication ELOS:2 or more midnights
[2019-08-16 22:08] LABS: Potassium 5.3 mmol/L (3.5-5.1)
[2019-08-16 22:14] LABS: Magnesium 0.7 mg/dL (1.6-2.6)
[2019-08-16] MEDS ORDERED: Labetalol HCl 100 MG/20 ML VIAL SLOW IVP PRN (22:41)
[2019-08-16] MEDS ORDERED: Magnesium 2 GM/50 ML 2 GM in Premix Bag 1 BAG IVPB SCH (22:45)
[2019-08-16] MEDS ORDERED: Amlodipine 5 MG TAB PO SCH (22:45)
[2019-08-16 23:55] LABS: Bacteria/HPF None Seen HPF (None Seen); Bilirubin Negative (Negative); Blood, Urine Negative (Negative); Clarity Clear (Clear); Glucose, Urine (Dipstick) 50 mg/dL (Negative); Leukocyte Negative Leu/uL (Negative); Nitrite Negative (Negative); Protein, Urine (Dipstick) Negative (Neg-Trace); RBC/HPF 0-3 HPF (0-3); Squamous Epithelial 0-3 HPF (0-3); Urobilinogen Normal mg/dL (Less than 2); WBC/HPF 0-3 HPF (0-3)
[2019-08-17] LABS: Urine Culture Reflex No No
[2019-08-17 00:12] LABS: Creatinine, Urine 53.41 mg/dL (63-166)
[2019-08-17 05:29] LABS: ALT (SGPT) 13 U/L (8-55); AST (SGOT) 14 U/L (5-34); Alkaline Phosphatase 57 U/L (40-110); Anion Gap 17 mmol/L (10-20); BUN (Urea Nitrogen) 76 mg/dL (8.4-25.7); Bilirubin, Total 0.4 mg/dL (0.2-1.2); Calc. Creatinine Clearance 10 mL/min (70-130); Calcium 8.2 mg/dL (7.8-10.44); Carbon Dioxide 26 mmol/L (23-31); Chloride 89 mmol/L (98-107); Estimated GFR-MDRD 7; Globulin 3.4 g/dL (2.4-3.5); Glucose 119 mg/dL (83-110); Magnesium 1.6 mg/dL (1.6-2.6); Phosphorus 5.3 mg/dL (2.3-4.7); Potassium 5.1 mmol/L (3.5-5.1); Protein, Total 7.4 g/dL (5.8-8.1); Sodium 127 mmol/L (136-145)
[2019-08-17 05:30] LABS: ALT (SGPT) 12 U/L (8-55); AST (SGOT) 13 U/L (5-34); Albumin 3.9 g/dL (3.4-4.8); Alkaline Phosphatase 55 U/L (40-110); Bilirubin, Direct 0.2 mg/dL (0.1-0.3); Bilirubin, Total 0.4 mg/dL (0.2-1.2); Protein, Total 7.3 g/dL (5.8-8.1)
[2019-08-17] MEDS: Amlodipine 5 MG TAB PO SCH (10:27)
[2019-08-17] MEDS: Folic Acid 1 MG TAB PO SCH (10:27)
[2019-08-17] MEDS: Aspirin 81 mg Enteric Coated Tablet PO SCH (10:27)
--- NOTE | 2019-08-17 13:59 | ULT ---
Bilateral renal ultrasound CLINICAL INDICATION: Acute renal insufficiency. COMPARISON: PET/CT exam on 05/12/2019 FINDINGS: Right kidney: There is no evidence of a renal mass, renal calculus, or hydronephrosis seen. The right kidney measures 13.8 cm x 6.7 cm. Left kidney: There is an anechoic cystic appearing structure seen within the region of the renal sinu s fat superior aspect left kidney measuring 2.3 cm. A hypodense lesion was seen in this region on prior PET/CT exam, and this likely represents a hepatic cyst. No hydronephrosis, renal calculus, heri l cortical thinning is seen on the left.The left kidney measures 12.7 cm x 5.8 cm. Urinary bladder: Within normal limits for degree of distention. IMPRESSION: 1. No evidence of hydronephrosis or renal cortical thinning bilaterally. 2. Left renal cyst.
--- NOTE | 2019-08-17 14:53 | PDOC.HOSPP ---
- Subjective Encounter Date: 08/17/19 Encounter Time: 08:00 Subjective: no overnight events. This morning, feels well and has no complaints. remains euvolemic. no available input/output data - Objective Vital Signs & Weight: Vital Signs (12 hours) Temp Pulse Resp BP Pulse Ox 08/17/19 12:10 97.9 F 66 16 154/75 H 96 08/17/19 09:25 97.9 F 65 20 141/85 H 97 08/17/19 03:00 53 L 18 140/67 92 L Weight Weight 192 lb 4.8 oz Result Diagrams: 08/17/19 04:39 Additional Labs: Accuchecks 08/17/19 08/17/19 08/16/19 03:59 03:18 23:13 POC Glucose 103 61 L 107 Hospitalist ROS - Review of Systems Constitutional: denies: fever, chills, sweats, weakness, malaise, other Respiratory: denies: cough, dry, shortness of breath, hemoptysis, SOB with excertion, pleuritic pain, sputum, wheezing, other Cardiovascular: denies: chest pain, palpitations, orthopnea, paroxysmal noc. dyspnea, edema, light headedness, other Gastrointestinal: denies: nausea, vomiting, abdominal pain, diarrhea, constipation, melena, hematochezia, other Genitourinary: denies: dysuria, frequency, incontinence, hematuria, retention, other - Medication Medications: Active Medications Generic Name Dose Route Start Last Admin Trade Name Freq PRN Reason Stop Dose Admin Amlodipine Besylate 5 mg 08/17/19 09:00 08/17/19 10:27 Norvasc PO 5 mg DAILY GRACE Administration Aspirin 81 mg 08/17/19 09:00 08/17/19 10:27 Ecotrin PO 81 mg DAILY GRACE Administration Folic Acid 1 mg 08/17/19 09:00 08/17/19 10:27 Folvite PO 1 mg DAILY GRACE Administration Pantoprazole Sodium 40 mg 08/17/19 09:00 08/17/19 10:26 Protonix PO 40 mg DAILY GRACE Administration - Exam General Appearance: NAD, awake alert Neck: no JVD Heart: RRR, no murmur, no gallops, no rubs, normal peripheral pulses Respiratory: CTAB, no wheezes, no rales, no ronchi, normal chest expansion, no tachypnea, normal percussion Gastrointestinal: soft, non-tender, non-distended, normal bowel sounds, no palpable masses, no hepatomegaly, no splenomegaly, no bruit Extremities: no edema Hosp A/P (1) Acute renal failure Status: Acute (2) Lung cancer Code(s): C34.90 - MALIGNANT NEOPLASM OF UNSP PART OF UNSP BRONCHUS OR LUNG Status: Acute (3) Hypertension Code(s): I10 - ESSENTIAL (PRIMARY) HYPERTENSION Status: Acute (4) BPH (benign prostatic hyperplasia) Code(s): N40.0 - BENIGN PROSTATIC HYPERPLASIA WITHOUT LOWER URINRY TRACT SYMP Status: Acute - Plan per nephrology, increased IVF from 50cc/hr to 100cc/hr postvoid and scans as instructed conitnue to monitor renal function pending records from oncology
--- NOTE | 2019-08-17 15:01 | RAD ---
AP CHEST: Date: 08/17/2019 INDICATION: Fluid overload. Shortness of breath. COMPARISON: 07/14/2019. FINDINGS: The pleural and parenchymal opacities in the left chest are again seen and appear stable. Left apical opacification. Peripheral left fluid and/or pleural thickening along with pleural and parenchymal op acities in the left lung base appear stable in appearance. Small effusions may be present. Right lung remains clear and unchanged. A MediPort catheter is now in place with tip overlying the SVC. IMPRESSION: Pleural and parenchymal opacities in the left chest appear stable from 07/14/2019. POS: [facility]
[2019-08-17] MEDS: Sodium Chloride 0.9% 1,000 ML IV SCH (17:02)
--- NOTE | 2019-08-17 19:42 | CON ---
DATE OF CONSULTATION: 08/17/2019 CONSULTING PHYSICIAN: Moses Donaldson MD REASON FOR CONSULTATION: Acute kidney injury. REASON FOR ADMISSION: Decreased urine output. HISTORY OF PRESENT ILLNESS: This is a 78-year-old male with a history of hypertension; hyperlipidemia; lung cancer, on chemo; came to the hospital with decreased urine output and also elevated creatinine, which was checked at the [facility] and sent to the hospital. The patient feels okay. Denies any symptoms. He was started on IV hydration yesterday. Nephrology consulted. No abdominal pain. No nausea, vomiting, or diarrhea reported. PAST MEDICAL HISTORY: Positive for hypertension, hyperlipidemia, stage III lung cancer, BPH, CKD, hypothyroidism. PAST SURGICAL HISTORY: Cataract removal. HOME MEDICATIONS: 1. Folic acid. 2. Aspirin. 3. Pravastatin. 4. Omeprazole. 5. Mobic. 6. Losartan. ALLERGIES: TO PENICILLIN, TETRACYCLINE. SOCIAL HISTORY: Former smoker and heavy alcohol use. FAMILY HISTORY: No history of kidney disease. REVIEW OF SYSTEMS: CONSTITUTIONAL: Negative for weight loss or gain, ability to conduct usual activities. SKIN: Negative for rash, itching. EYES: Negative for double vision, pain. ENT/MOUTH: Negative for nose bleeding, neck stiffness, pain, tenderness. CARDIOVASCULAR: Negative for palpitations, dyspnea on exertion, orthopnea. RESPIRATORY: Negative for shortness of breath, wheezing, cough, hemoptysis, fever or night sweats. GASTROINTESTINAL: Negative for poor appetite, abdominal pain, heartburn, nausea, vomiting, constipation, or diarrhea. GENITOURINARY: Negative for urgency, frequency, dysuria, nocturia. MUSCULOSKELETAL: Negative for pain, swelling. NEUROLOGIC/PSYCHIATRIC: Negative for anxiety, depression. ALLERGY/IMMUNOLOGIC: Negative for skin rash, bleeding tendency. PHYSICAL EXAMINATION: GENERAL: This is a well-built male, in no apparent distress. VITAL SIGNS: Temperature 97.9, pulse 60, respiratory rate 16, and blood pressure 150/75. HEENT: Atraumatic, normocephalic. Oral mucosa is moist. NECK: Supple. CV: S1 and S2 heard. Rate and rhythm are regular. RESPIRATORY: Clear. MUSCULOSKELETAL: 1+ edema. DERMATOLOGIC: No skin rash. NEUROLOGIC: Alert and awake. PSYCHIATRIC: Normal mood and affect. LABORATORY DATA: Sodium 127, potassium 5.1, BUN 76, creatinine 7.1. ASSESSMENT AND PLAN: 1. Acute kidney injury, most likely from volume depletion. We will check a renal ultrasound. Continue hydration. Avoid nephrotoxins. 2. Edema, controlled. 3. Hyponatremia, better. 4. Hyperkalemia, better. 5. History of hypertension. 6. Continue IV hydration as tolerated. Avoid nephrotoxins. We will check renal ultrasound. We will follow the case along with you. Thank you for the consult. Job ID: [id number]
[2019-08-17] MEDS: Melatonin 3 MG TAB PO PRN (23:59)
[2019-08-18 05:10] LABS: Anion Gap 15 mmol/L (10-20); BUN (Urea Nitrogen) 66 mg/dL (8.4-25.7); Calc. Creatinine Clearance 12 mL/min (70-130); Calcium 7.4 mg/dL (7.8-10.44); Carbon Dioxide 25 mmol/L (23-31); Chloride 95 mmol/L (98-107); Estimated GFR-MDRD 9; Glucose 102 mg/dL (83-110); Magnesium 1.1 mg/dL (1.6-2.6); Potassium 4.4 mmol/L (3.5-5.1); Sodium 131 mmol/L (136-145)
[2019-08-18] MEDS: Aspirin 81 mg Enteric Coated Tablet PO SCH (08:34)
[2019-08-18] MEDS: Amlodipine 5 MG TAB PO SCH (08:34)
[2019-08-18] MEDS: Folic Acid 1 MG TAB PO SCH (08:34)
[2019-08-18] MEDS: Magnesium Oxide 400 MG TAB PO SCH ×2 (11:48→16:02)
--- NOTE | 2019-08-18 11:48 | PRG ---
DATE OF SERVICE: 08/18/2019 SUBJECTIVE: Patient was seen and examined at bedside and overnight events noted. Patient denies any shortness of breath or chest pain or palpitation. No history of nausea or vomiting or diarrhea or fever or chills or cramps. OBJECTIVE: GENERAL: This is a well-built male, in no apparent distress. VITAL SIGNS: Temperature 97.9, pulse 69, respiratory rate 18, blood pressure 167/77. HEENT: Atraumatic, normocephalic. Oral mucosa is moist. Neck: Supple. Cardiovascular: S1, S2 heard. Rate and rhythm regular. Respiratory: Clear to auscultation. Gastrointestinal: Abdomen is soft. Musculoskeletal: No tenderness. No edema. Dermatologic: No skin rash. Neurologic: Alert and awake and oriented x3. No focal neurologic deficits. Moving all the extremities. Psychiatric: Mood and affect normal. LABORATORY DATA: Potassium 4.4, BUN is 66, creatinine is 6.3. ASSESSMENT AND PLAN: 1. Acute kidney injury, getting better most likely from volume depletion. 2. Hypovolemia. 3. Edema, controlled. 4. Hyperkalemia, better. 5. History of hypertension. 6. Continue IV fluids. 7. Hyponatremia, better. Job ID: [id number]
[2019-08-18] MEDS ORDERED: Benzocaine (Dental) 20% 10 gm Tube TOP PRN (14:53)
--- NOTE | 2019-08-18 15:02 | PDOC.HOSPP ---
- Subjective Encounter Date: 08/18/19 Encounter Time: 09:00 Subjective: no overnight events. This morning, feels well and has no complaints. No sob or swelling - Objective Vital Signs & Weight: Vital Signs (12 hours) Temp Pulse Resp BP Pulse Ox 08/18/19 11:40 98.2 F 62 18 149/77 H 95 08/18/19 08:30 97.9 F 69 18 167/77 H 94 L 08/18/19 03:06 97.6 F 72 18 167/89 H 95 Weight Weight 192 lb 4.8 oz I&O: 08/17/19 08/18/19 08/19/19 06:59 06:59 06:59 Intake Total 3046 Output Total 1400 Balance 1646 Result Diagrams: 08/18/19 04:07 Hospitalist ROS - Review of Systems Constitutional: denies: fever, chills, sweats, weakness, malaise, other Respiratory: denies: cough, dry, shortness of breath, hemoptysis, SOB with excertion, pleuritic pain, sputum, wheezing, other Cardiovascular: denies: chest pain, palpitations, orthopnea, paroxysmal noc. dyspnea, edema, light headedness, other Gastrointestinal: denies: nausea, vomiting, abdominal pain, diarrhea, constipation, melena, hematochezia, other Genitourinary: denies: dysuria, frequency, incontinence, hematuria, retention, other - Medication Medications: Active Medications Generic Name Dose Route Start Last Admin Trade Name Freq PRN Reason Stop Dose Admin Amlodipine Besylate 5 mg 08/17/19 09:00 08/18/19 08:34 Norvasc PO 5 mg DAILY GRACE Administration Aspirin 81 mg 08/17/19 09:00 08/18/19 08:34 Ecotrin PO 81 mg DAILY GRACE Administration Folic Acid 1 mg 08/17/19 09:00 08/18/19 08:34 Folvite PO 1 mg DAILY GRACE Administration Sodium Chloride 1,000 mls @ 100 mls/hr 08/17/19 12:39 08/18/19 00:00 Normal Saline 0.9% IV 1,000 mls .Q10H GRACE Administration Magnesium Oxide 400 mg 08/18/19 12:00 08/18/19 11:48 Magnesium Oxide PO 08/18/19 16:01 400 mg 1200,1600 GARCE Administration Melatonin 6 mg 08/17/19 23:45 08/17/19 23:59 Melatonin PO 6 mg HS PRN Administration Insomnia Pantoprazole Sodium 40 mg 08/17/19 09:00 08/18/19 08:34 Protonix PO 40 mg DAILY GRACE Administration - Exam General Appearance: NAD, awake alert Neck: supple, symmetric, no JVD, no thyromegaly, no lymphadenopathy, no carotid bruit Heart: RRR, no murmur, no gallops, no rubs, normal peripheral pulses Respiratory: CTAB, no wheezes, no rales, no ronchi, normal chest expansion, no tachypnea, normal percussion Gastrointestinal: soft, non-tender, non-distended, normal bowel sounds, no palpable masses, no hepatomegaly, no splenomegaly, no bruit Extremities: no edema Hosp A/P (1) Acute renal failure Status: Acute (2) Lung cancer Code(s): C34.90 - MALIGNANT NEOPLASM OF UNSP PART OF UNSP BRONCHUS OR LUNG Status: Acute (3) Hypertension Code(s): I10 - ESSENTIAL (PRIMARY) HYPERTENSION Status: Acute (4) BPH (benign prostatic hyperplasia) Code(s): N40.0 - BENIGN PROSTATIC HYPERPLASIA WITHOUT LOWER URINRY TRACT SYMP Status: Acute - Plan renal function improving - continue management as per nephrology #right molar tooth pain - apply orajel rest of management unchanged
[2019-08-18] MEDS: Sodium Chloride 0.9% 1,000 ML IV SCH ×3 (16:02→20:36)
[2019-08-18] MEDS: Melatonin 3 MG TAB PO PRN (20:36)
[2019-08-19 05:18] LABS: Phosphorus 4.1 mg/dL (2.3-4.7)
[2019-08-19 05:20] LABS: Anion Gap 14 mmol/L (10-20); BUN (Urea Nitrogen) 57 mg/dL (8.4-25.7); Calc. Creatinine Clearance 14 mL/min (70-130); Calcium 7.4 mg/dL (7.8-10.44); Carbon Dioxide 24 mmol/L (23-31); Chloride 98 mmol/L (98-107); Estimated GFR-MDRD 11; Glucose 88 mg/dL (83-110); Potassium 4.4 mmol/L (3.5-5.1); Sodium 132 mmol/L (136-145)
[2019-08-19 05:23] LABS: Magnesium 0.9 mg/dL (1.6-2.6)
[2019-08-19] MEDS ORDERED: Magnesium 2 GM/50 ML 2 GM in Premix Bag 1 BAG IVPB SCH (05:30)
[2019-08-19] MEDS: Sodium Chloride 0.9% 1,000 ML IV SCH ×3 (05:30→16:39)
[2019-08-19] MEDS: Aspirin 81 mg Enteric Coated Tablet PO SCH (08:56)
[2019-08-19] MEDS: Folic Acid 1 MG TAB PO SCH (08:56)
[2019-08-19] MEDS: Amlodipine 5 MG TAB PO SCH (08:56)
--- NOTE | 2019-08-19 14:55 | PDOC.HOSPP ---
- Subjective Encounter Date: 08/19/19 Encounter Time: 08:00 Subjective: no overnight events. This morning, complains fo continued tooth pain. notified him that he has to ask for the orajel in order for nurse to give it to him. otherwise no complaints. - Objective Vital Signs & Weight: Vital Signs (12 hours) Temp Pulse Resp BP BP BP Pulse Ox 08/19/19 11:32 98.1 F 68 20 165/75 H 94 L 08/19/19 08:56 66 180/81 H 08/19/19 08:05 96.5 F L 66 18 180/81 H 95 08/19/19 03:07 98.3 F 68 18 164/78 H 94 L Weight Weight 201 lb 9.6 oz I&O: 08/18/19 08/19/19 08/20/19 06:59 06:59 06:59 Intake Total 3046 3320 237 Output Total 1400 2975 1475 Balance 1646 345 -2719 Result Diagrams: 08/19/19 04:02 Hospitalist ROS - Review of Systems Constitutional: denies: fever, chills, sweats, weakness, malaise, other Respiratory: denies: cough, dry, shortness of breath, hemoptysis, SOB with excertion, pleuritic pain, sputum, wheezing, other Cardiovascular: denies: chest pain, palpitations, orthopnea, paroxysmal noc. dyspnea, edema, light headedness, other Gastrointestinal: denies: nausea, vomiting, abdominal pain, diarrhea, constipation, melena, hematochezia, other Genitourinary: denies: dysuria, frequency, incontinence, hematuria, retention, other - Medication Medications: Active Medications Generic Name Dose Route Start Last Admin Trade Name Freq PRN Reason Stop Dose Admin Amlodipine Besylate 5 mg 08/17/19 09:00 08/19/19 08:56 Norvasc PO 5 mg DAILY GRACE Administration Aspirin 81 mg 08/17/19 09:00 08/19/19 08:56 Ecotrin PO 81 mg DAILY GRACE Administration Benzocaine 0 gm 08/18/19 14:53 08/19/19 11:59 Orajel 20% TOP 10 gm DAILYPRN PRN Administration Tooth or Gum Pain Folic Acid 1 mg 08/17/19 09:00 08/19/19 08:56 Folvite PO 1 mg DAILY GRACE Administration Sodium Chloride 1,000 mls @ 100 mls/hr 08/17/19 12:39 08/19/19 11:31 Normal Saline 0.9% IV 1,000 mls .Q10H GRACE Administration Melatonin 6 mg 08/17/19 23:45 08/18/19 20:36 Melatonin PO 6 mg HS PRN Administration Insomnia Pantoprazole Sodium 40 mg 08/17/19 09:00 08/19/19 08:56 Protonix PO 40 mg DAILY GRACE Administration - Exam General Appearance: NAD, awake alert Heart: RRR, no murmur, no gallops, no rubs, normal peripheral pulses Respiratory: CTAB, no wheezes, no rales, no ronchi, normal chest expansion, no tachypnea, normal percussion Gastrointestinal: soft, non-tender, non-distended, normal bowel sounds, no palpable masses, no hepatomegaly, no splenomegaly, no bruit Extremities: no edema Psychiatric: normal affect, normal behavior, A&O x 3 Hosp A/P (1) Acute renal failure Status: Acute (2) Lung cancer Code(s): C34.90 - MALIGNANT NEOPLASM OF UNSP PART OF UNSP BRONCHUS OR LUNG Status: Acute (3) Hypertension Code(s): I10 - ESSENTIAL (PRIMARY) HYPERTENSION Status: Acute (4) BPH (benign prostatic hyperplasia) Code(s): N40.0 - BENIGN PROSTATIC HYPERPLASIA WITHOUT LOWER URINRY TRACT SYMP Status: Acute - Plan renal function improving - continue management as per nephrology #right molar tooth pain - apply orajel rest of management unchanged
[2019-08-19] MEDS: Magnesium 2 GM/50 ML 2 GM in Premix Bag 1 BAG IVPB SCH ×2 (15:57→18:44)
[2019-08-19] MEDS: Melatonin 3 MG TAB PO PRN (20:38)
[2019-08-20] MEDS: Sodium Chloride 0.9% 1,000 ML IV SCH ×2 (00:02→16:34)
[2019-08-20 05:18] LABS: Anion Gap 15 mmol/L (10-20); BUN (Urea Nitrogen) 43 mg/dL (8.4-25.7); Calc. Creatinine Clearance 19 mL/min (70-130); Calcium 7.8 mg/dL (7.8-10.44); Carbon Dioxide 24 mmol/L (23-31); Chloride 97 mmol/L (98-107); Estimated GFR-MDRD 14; Glucose 113 mg/dL (83-110); Magnesium 2.2 mg/dL (1.6-2.6); Potassium 4.3 mmol/L (3.5-5.1); Sodium 132 mmol/L (136-145)
[2019-08-20] MEDS: Folic Acid 1 MG TAB PO SCH (09:10)
[2019-08-20] MEDS: Aspirin 81 mg Enteric Coated Tablet PO SCH (09:10)
[2019-08-20] MEDS: Amlodipine 5 MG TAB PO SCH (09:10)
--- NOTE | 2019-08-20 14:44 | PDOC.HOSPP ---
- Subjective Encounter Date: 08/20/19 Subjective: Feeling better - Objective Vital Signs & Weight: Vital Signs (12 hours) Temp Pulse Resp BP BP Pulse Ox 08/20/19 12:32 97.5 F L 70 16 159/77 H 08/20/19 09:10 63 08/20/19 09:05 99 F 63 16 152/76 H 93 L 08/20/19 08:00 93 L 08/20/19 04:00 99.7 F H 63 16 153/65 H 94 L Weight Weight 200 lb 3.2 oz I&O: 08/19/19 08/20/19 08/21/19 06:59 06:59 06:59 Intake Total 3320 777 Output Total 1053 9846 Balance 345 -4115 Result Diagrams: 08/20/19 04:01 Hospitalist ROS - Medication Medications: Active Medications Generic Name Dose Route Start Last Admin Trade Name Freq PRN Reason Stop Dose Admin Amlodipine Besylate 5 mg 08/17/19 09:00 08/20/19 09:10 Norvasc PO 5 mg DAILY GRACE Administration Aspirin 81 mg 08/17/19 09:00 08/20/19 09:10 Ecotrin PO 81 mg DAILY GRACE Administration Benzocaine 0 gm 08/18/19 14:53 08/19/19 11:59 Orajel 20% TOP 10 gm DAILYPRN PRN Administration Tooth or Gum Pain Folic Acid 1 mg 08/17/19 09:00 08/20/19 09:10 Folvite PO 1 mg DAILY GRACE Administration Sodium Chloride 1,000 mls @ 75 mls/hr 08/19/19 16:19 08/20/19 00:02 Normal Saline 0.9% IV 1,000 mls .[id number] GRACE Administration Melatonin 6 mg 08/17/19 23:45 08/19/19 20:38 Melatonin PO 6 mg HS PRN Administration Insomnia Pantoprazole Sodium 40 mg 08/17/19 09:00 08/20/19 09:10 Protonix PO 40 mg DAILY GRACE Administration - Exam General Appearance: awake alert ENT: normocephalic atraumatic Neck: supple Respiratory: normal chest expansion, no tachypnea Gastrointestinal: soft Neurological: cranial nerve grossly intact, no focal deficits Hosp A/P (1) Acute renal failure Status: Acute (2) BPH (benign prostatic hyperplasia) Code(s): N40.0 - BENIGN PROSTATIC HYPERPLASIA WITHOUT LOWER URINRY TRACT SYMP Status: Acute (3) Hypertension Code(s): I10 - ESSENTIAL (PRIMARY) HYPERTENSION Status: Acute - Plan Acute kidney injury responding to IV hydration. Likely prerenal. Creatinine level dropped to 4.24. Continue IV fluids. Appreciate nephrology.
[2019-08-20] MEDS ORDERED: Acetaminophen 325 MG TAB PO PRN (18:08)
--- NOTE | 2019-08-20 18:27 | PRG ---
DATE OF SERVICE: 08/20/2019 SUBJECTIVE: Patient was seen and examined at bedside and overnight events noted. Patient denies any shortness of breath or chest pain or palpitation. No history of nausea or vomiting or diarrhea or fever or chills or cramps. OBJECTIVE: General: This is a well-built male, in no apparent distress. Vital Signs: Temperature is 99.0. Heart rate 63. Respiratory rate . Blood pressure 152/76. HEENT: Atraumatic, normocephalic. Oral mucosa is moist. Neck: Supple. Cardiovascular: S1, S2 heard. Rate and rhythm regular. Respiratory: Clear to auscultation. Gastrointestinal: Abdomen is soft. Musculoskeletal: No tenderness. No edema. Dermatologic: No skin rash. Neurologic: Alert and awake and oriented x3. No focal neurologic deficits. Moving all the extremities. Psychiatric: Mood and affect normal. LABORATORY DATA: Potassium 4.3, BUN is 43, and creatinine is 4.2. ASSESSMENT AND PLAN: 1. Acute kidney injury on chronic kidney disease, stage 3. Creatinine getting better. 2. Edema. 3. Hypertension. 4. Hyperlipidemia. 5. Hyponatremia, better. Overall labs are getting better. Job ID: [id number]
[2019-08-20] MEDS: Melatonin 3 MG TAB PO PRN (20:07)
[2019-08-21 00:24] LABS: Anion Gap 14 mmol/L (10-20); BUN (Urea Nitrogen) 40 mg/dL (8.4-25.7); Calc. Creatinine Clearance 22 mL/min (70-130); Calcium 7.9 mg/dL (7.8-10.44); Carbon Dioxide 25 mmol/L (23-31); Chloride 97 mmol/L (98-107); Estimated GFR-MDRD 16; Glucose 103 mg/dL (83-110); Magnesium 1.7 mg/dL (1.6-2.6); Phosphorus 3.6 mg/dL (2.3-4.7); Sodium 132 mmol/L (136-145)
[2019-08-21 04:57] LABS: Anion Gap 15 mmol/L (10-20); BUN (Urea Nitrogen) 36 mg/dL (8.4-25.7); Calc. Creatinine Clearance 23 mL/min (70-130); Calcium 7.8 mg/dL (7.8-10.44); Carbon Dioxide 21 mmol/L (23-31); Chloride 97 mmol/L (98-107); Estimated GFR-MDRD 18; Glucose 125 mg/dL (83-110); Potassium 3.5 mmol/L (3.5-5.1); Sodium 129 mmol/L (136-145)
[2019-08-21] MEDS: Sodium Chloride 0.9% 1,000 ML IV SCH (06:18)
[2019-08-21 06:28] VITALS: BMI 28.6
[2019-08-21] MEDS: Amlodipine 5 MG TAB PO SCH (08:20)
[2019-08-21] MEDS: Aspirin 81 mg Enteric Coated Tablet PO SCH (08:20)
[2019-08-21] MEDS: Folic Acid 1 MG TAB PO SCH (08:20)
[2019-08-21 11:35] VITALS: BP 156/70; TEMP 99
--- NOTE | 2019-08-21 15:42 | PRG ---
DATE OF SERVICE: 08/21/2019 SUBJECTIVE: Patient was seen and examined at bedside and overnight events noted. Patient denies any shortness of breath or chest pain or palpitation. No history of nausea or vomiting or diarrhea or fever or chills or cramps. OBJECTIVE: General: This is a well-built male in no apparent distress. Vital Signs: Temperature 99.0, pulse 62, respiratory rate of 18, blood pressure 156/70. HEENT: Atraumatic, normocephalic. Oral mucosa is moist. Neck: Supple. Cardiovascular: S1, S2 heard. Rate and rhythm regular. Respiratory: Clear to auscultation. Gastrointestinal: Abdomen is soft. Musculoskeletal: No tenderness. No edema. Dermatologic: No skin rash. Neurologic: Alert and awake and oriented x3. No focal neurologic deficits. Moving all the extremities. Psychiatric: Mood and affect normal. LABORATORY DATA: Potassium 3.5, BUN is 36, and creatinine is 3.4. ASSESSMENT AND PLAN: 1. Acute kidney injury on chronic kidney stage 3, getting better. 2. Edema. 3. Hypertension. 4. Hyponatremia. Follow up with the clinic in 1-2 weeks. Job ID: [id number]
--- NOTE | 2019-08-21 18:58 | DIS ---
DATE OF ADMISSION: 08/16/2019 DATE OF DISCHARGE: 08/21/2019 DISCHARGE DIAGNOSES: 1. Acute kidney injury superimposed on chronic kidney disease stage 3. 2. Hypertension. 3. Hyperlipidemia. 4. Hyponatremia. 5. Edema. DISCHARGE MEDICATIONS: 1. Amlodipine 5 mg orally daily. 2. Aspirin 81 mg orally daily. 3. Folic acid 1 mg orally daily. 4. Omeprazole 20 mg orally daily. 5. Pravastatin 40 mg orally nightly. The patient was instructed not to take meloxicam or losartan. HISTORY OF PRESENT ILLNESS AND BRIEF HOSPITAL COURSE: The patient is a 78-year-old male with past medical historyof stage III lung cancer, status post chemotherapy started 2 weeks ago, who presented to the hospital with reduced urine output. The patient stated that over the past 2 weeks since he has received his chemotherapy, his urine output decreased progressively. He followed up at his oncology clinic and his creatinine level was found to be significantly elevated compared to earlier in July and he was sent to the emergency department. The patient was admitted to the hospital with impression of oliguric acute kidney injury, likely related to ATN secondary to volume depletion and NSAIDs use at home. The patient was managed with IV hydration, which led to gradual improvement of his creatinine level over the duration of his hospital stay from 7.53 on the day of admission to 3.4. He also had hyponatremia and hyperkalemia on presentation, which both improved throughout his hospital stay with hydration and improvement in his kidney function. At this time, the patient is stable for discharge with outpatient followup with Oncology and Nephrology. Job ID: [id number]
== END 2019-08-21 14:35 | disposition home or self-care (01) | DRG 683 ==
LOC: ERS 16:08 → 2NO 17:33
PROVIDERS: ADMIT Internal Medicine; ATTEND Internal Medicine
DX: N17.0 Acute kidney failure with tubular necrosis (principal); C34.90 Malignant neoplasm of unspecified part of unspecified bronchus or lung; E87.1 Hypo-osmolality and hyponatremia; E86.9 Volume depletion, unspecified; N18.3 Chronic kidney disease, stage 3 (moderate); I12.9 Hypertensive chronic kidney disease with stage 1 through stage 4 chronic kidney disease, or unspecified chronic kidney disease; E78.5 Hyperlipidemia, unspecified; T39.395A Adverse effect of other nonsteroidal anti-inflammatory drugs [NSAID], initial encounter; E87.5 Hyperkalemia; E86.1 Hypovolemia; N40.0 Benign prostatic hyperplasia without lower urinary tract symptoms; E03.9 Hypothyroidism, unspecified; K08.89 Other specified disorders of teeth and supporting structures; R60.9 Edema, unspecified; Z79.899 Other long term (current) drug therapy; Z79.82 Long term (current) use of aspirin; Z79.1 Long term (current) use of non-steroidal anti-inflammatories (NSAID); Z88.1 Allergy status to other antibiotic agents; Z88.0 Allergy status to penicillin; Z87.891 Personal history of nicotine dependence; Z98.49 Cataract extraction status, unspecified eye
CPT/HCPCS: 36415; 36416; 71045; 76770; 80048; 80053; 81001; 82550; 82570; 83735; 84100; 84300; 93005; 93010; 99284; J1642; J1815; J3475; J3490

== ENCOUNTER 2019-09-12 16:41 | Inpatient (IN) | payer MEDICARE, BC ==
[2019-09-12 18:20] VITALS: BMI 25.2
[2019-09-12] MEDS ORDERED: Acetaminophen 325 MG TAB PO PRN (18:20)
[2019-09-12] MEDS ORDERED: Ondansetron PF 4 MG/2 ML Vial IVP PRN (19:27)
--- NOTE | 2019-09-12 19:37 | PDOC.HHP ---
Hospitalist HPI - History of Present Illness joint pain History of Present Illness: This is a 78 year old male patient with past medical history of lung cancer s/p resection in July , atrial fibrillation, hypertension, hyperlipidemia who presented to the ER with joint pains and unsteadiness. Patient states his joint pain in his arms started about four to five days ago. His pain is mostly in his right hand and stated that he was unable to hold a coffee cup this morning due to the pain. He has no numbness in his arms or legs. He has no swelling other than in his right hand. He did not fall but states he feels dizzy when he sits on the edge of the bed. He has been feeling unsteady while walking but has not actually fell or pass out. He denies headache, slurred speech or changes in his vision. He denies chest pain, palpitations, cough, shortness of breath, abdominal pain, nausea, vomiting, or diarrhea. ED Course: Patient went to [facility] ER. He was found to have normal vitals except for pulse of 121. He was noted to be in afib with RVR. Per patient, he states he remembers being diagnosed with afib 15 years ago but does not take treatment for it. Labs showed a WBC of 15, creatinine of 1.79, calcium 6.9, phos 4.8. CT brain showed no acute findings. Chest X ray was normal. He was given 25 fentanyl, aspirin 325 mg, metoprolol 5Pe mg, lovenox 80 mg, 1 gram of calcium gluconate and 1L fluid. Heart rate improved to 80 and patient evaluated for TIA/stroke workup. Per ER doctor, patient's recent PET scan was negative. Hospitalist ROS - Review of Systems Constitutional: denies: fever, chills ENT: denies: ear pain, ear discharge Respiratory: denies: cough, dry, shortness of breath Cardiovascular: denies: chest pain, palpitations, orthopnea Gastrointestinal: denies: nausea, vomiting, abdominal pain Genitourinary: denies: dysuria, frequency Musculoskeletal: reports: other (right hand pain) - Medication Medications: Folic aci d1 mg daily Amlodipine 5 mg daily Losartan 50 mg daily (patient unsure) Fish oil Omeprazole 20 mg daily Aspirin 81 mg daily Pravastatin 40 mg po qhs Hospitalist History - Past Medical History Cardiac: reports: AFIB, HTN, Hyperlipidemia Heme/Onc: reports: Cancer (stage III lung cancer) Renal/: reports: Benign prostatic enlarg.. denies: Chronic renal insuff, Chronic renal failure, Hematuria - Past Surgical History Past Surgical History: reports: Cataract Removal Other Surgical History: Retinal surgery Left thoracotomy Tonsillectomy - Social History Smoking Status: Former smoker (Smoked for > 50 years, quit at 76) Alcohol: reports: Heavy (daily vodka drinker, multiple glasses daily) Drugs: reports: none - Exam General Appearance: NAD, awake alert Eye: PERRL, anicteric sclera ENT: normocephalic atraumatic, no oropharyngeal lesions ENT - other findings: hard of hearing on the left ear Neck: no JVD Heart: no murmur, no gallops, no rubs, irregular Respiratory: CTAB, no wheezes, no rales, no ronchi Gastrointestinal: soft, non-tender, non-distended, normal bowel sounds Extremities: no cyanosis, no clubbing Extremities - other findings: right hand tenderness, mild swelling. Some pain moving right hand Neurological: normal sensation to touch Neurological - other findings: RUE 4/5, LUE 5/5, RLE 5/5, LLE 5/5 Musculoskeletal: normal tone, normal strength, no muscle wasting Psychiatric: A&O x 3, oriented to person Hospitalist Results - EKG Interpretation EKG: atrial fibrillation Hospitalist H&P A/P - Plan Plan: This is a 78 year old male with history of lung cancer presenting with joint pains, gait unsteadiness, and afib with RVR #Right hand pain/weakness #Gait instability - will check right hand Xray due to tenderness on exam. Patient has mild RUE weakness, no shoulder or elbow tenderness. CT head negative. Will check MRI brain due to poor problems with balance - check orthostatics - PT/OT consult - will consider neuro consult - continue aspirin 8 1mg and atorvastatin Afib with RVR - s/p metoprolol 5 mg in the ER and therapeutic lovenox - will check an ECHO - currently rate controlled - may need anticoagulation but seems to be fall risk currently Lung cancer s/p thoracotomy - s/p recent chemo - per ER doctor PET scan was negative CKD - pt reports that he was on chemotherapy agent that destroyed his kidney and is currently on alternative chemo regimen - creatinine 1.67 which is better than previously - UA negative Hypertension - controlled - will hold amlodipine for now DVT prophylaxis: Code status: DNI
[2019-09-12] MEDS ORDERED: Metoprolol Tartrate 5 MG/5 ML VIAL IVP PRN (20:00)
[2019-09-12] MEDS ORDERED: Potassium Chloride 20 MEQ TAB PO SCH (20:30)
[2019-09-12] MEDS: Atorvastatin Calcium 10 MG TAB PO SCH (20:53)
[2019-09-12] MEDS ORDERED: Atorvastatin Calcium 40 MG TAB PO SCH (21:00)
[2019-09-12] MEDS ORDERED: Prevnar 13-Val Conj/PF 0.5 ML SYRINGE IM ONE (21:00)
[2019-09-12] MEDS ORDERED: Magnesium Sulfate 2 GM in Sodium Chloride 0.9% 100 ML IVPB SCH (21:30)
[2019-09-13 00:55] LABS: Phosphorus 4.5 mg/dL (2.3-4.7)
[2019-09-13 00:57] LABS: Magnesium 1.7 mg/dL (1.6-2.6); Potassium 4.1 mmol/L (3.5-5.1)
[2019-09-13 05:21] LABS: #Basophils 0.1 thou/uL (0.0-0.2); #Eosinphils 0.2 thou/uL (0.0-0.7); #Lymphocytes 1.9 thou/uL (1.20-3.40); #Monocytes 0.1 thou/uL (0.11-0.59); #Neutrophils 6.5 thou/uL (1.40-6.50); %Basophils 0.7 % (0.0-1.0); %Eosinophils 2.5 % (0.0-10.0); %Lymphocytes 21.7 % (21.0-51.0); %Monocytes 0.6 % (0.0-10.0); %Neutrophils 74.5 % (42.0-75.0); Hemoglobin 10.6 g/dL (14.0-18.0); Mean Corpuscular HGB CONC 32.4 g/dL (32.0-36.0); Mean Corpuscular Hemoglobin 27.8 pg (27.0-31.0); Mean Platelet Volume 8.4 fL (7.4-10.4); Platelet Count 248 thou/uL (130-400); Red Blood Cell (RBC) Count 3.81 mill/uL (4.70-6.10); White Blood Cell (WBC) Count 8.7 thou/uL (4.8-10.8)
[2019-09-13] MEDS: HYDROcodone/Acetaminophen 5/325 mg Tablet PO PRN ×2 (05:34→20:59)
[2019-09-13 05:35] LABS: Anion Gap 17 mmol/L (10-20); BUN (Urea Nitrogen) 38 mg/dL (8.4-25.7); Calc. Creatinine Clearance 46 mL/min (70-130); Calcium 6.7 mg/dL (7.8-10.44); Carbon Dioxide 21 mmol/L (23-31); Cardiac Risk 5.2 (Less than 4.5); Chloride 103 mmol/L (98-107); Cholesterol 136 mg/dl (< 200 Desired); Estimated GFR-MDRD 42; Glucose 102 mg/dL (83-110); HDL Cholesterol 26 mg/dL (>60 Neg Risk); LDL Cholesterol, Calculated 92 mg/dL; Potassium 4.3 mmol/L (3.5-5.1); Sodium 137 mmol/L (136-145); Triglycerides 90 mg/dL (Less than 150)
[2019-09-13 05:57] LABS: CKMB 1.3 ng/mL (0-6.6)
--- NOTE | 2019-09-13 08:42 | MRI ---
Exam: Brain MRI without contrast HISTORY: Right arm weakness, unsteadiness. COMPARISON: None FINDINGS: Calvarial marrow signal intensity: Appropriate T1 marrow signal intensity. Midline brain parenchymal structures are unremarkable Gradient echo sequence: No hemorrhage Brain parenchyma: No mass, mass effect or midline shift. Brain volume, age-appropriate. Brain volume, age-appropriate. Cortical gonzalez-white matter differentiation: Preserved Restricted diffusion: Central arterial flow voids are maintained. Absent restricted diffusion White matter signal intensities: T2, FLAIR white matter hyperintensities due to chronic small vessel ischemic changes Sinuses: Adequate aeration of the paranasal sinuses and mastoid air cells. IMPRESSION: 1. Absent restricted diffusion. No acute infarct. 2. Brain volume, age-appropriate. Chronic small vessel ischemic changes of the white matter.
[2019-09-13] MEDS ORDERED: Enoxaparin Sodium 40 MG/0.4 ML SYRINGE SC SCH (09:00)
[2019-09-13] MEDS ORDERED: Aspirin 81 mg Enteric Coated Tablet PO SCH (09:00)
[2019-09-13] MEDS ORDERED: Fish Oil 1,000 MG CAP PO SCH (09:00)
[2019-09-13] MEDS: Folic Acid 1 MG TAB PO SCH (09:14)
[2019-09-13] MEDS: Fish Oil 1,000 MG CAP PO SCH (09:15)
[2019-09-13 10:19] LABS: Bacteria/HPF None Seen HPF (None Seen); Bilirubin Negative (Negative); Blood, Urine Negative (Negative); Clarity Clear (Clear); Glucose, Urine (Dipstick) Normal (Negative); Leukocyte Negative Leu/uL (Negative); Nitrite Negative (Negative); Protein, Urine (Dipstick) 20 mg/dL (Neg-Trace); RBC/HPF 0-3 HPF (0-3); Squamous Epithelial 0-3 HPF (0-3); Urobilinogen Normal mg/dL (Less than 2)
[2019-09-13 10:23] LABS: Urine Culture Reflex Yes Yes
[2019-09-13] MEDS ORDERED: Magnesium Sulfate 1 GM, Admixture Fee 1 EACH in Sodium Chloride 0.9% 100 ML IVPB SCH (11:00)
--- NOTE | 2019-09-13 12:04 | RAD ---
RIGHT HAND 2 VIEWS: INDICATION: Right hand tenderness. COMPARISON: None. FINDINGS: There is prominent 1st CMC osteoarthrosis. There is scattered moderate IP osteoarthrosis. No acute fracture or subluxation is evident. IMPRESSION: Scattered osteoarthrosis of the right hand. POS: BH
--- NOTE | 2019-09-13 16:46 | PDOC.HOSPP ---
- Subjective Encounter Date: 09/13/19 Encounter Time: 16:45 Subjective: The patient is doing well. Hand cramps have improved. He states he walked with PT and did okay with a walker. Per nursing, his heart rate increases to 150 on ambulation. No chest pain or palpitations - Objective Vital Signs & Weight: Vital Signs (12 hours) Temp Pulse Pulse Pulse Pulse Resp BP 09/13/19 15:30 98 F 63 16 09/13/19 14:03 87 102 H 88 107/72 09/13/19 11:48 98.4 F 62 16 09/13/19 08:19 09/13/19 07:59 98.4 F 87 16 BP BP BP BP BP Pulse Ox 09/13/19 15:30 110/65 95 09/13/19 14:03 122/77 09/13/19 11:48 112/75 96 09/13/19 08:19 108/57 L 99/57 L 112/58 L 09/13/19 07:59 103/59 L 94 L Weight Weight 186 lb 8 oz I&O: 09/12/19 09/13/19 09/14/19 06:59 06:59 06:59 Intake Total 100 Output Total 550 Balance -550 100 Result Diagrams: 09/13/19 05:03 09/13/19 05:03 Hospitalist ROS - Review of Systems Constitutional: denies: fever, chills - Medication Medications: Active Medications Generic Name Dose Route Start Last Admin Trade Name Freq PRN Reason Stop Dose Admin Hydrocodone Bitart/Acetaminophen 1 tab 09/12/19 19:33 09/13/19 05:34 [place] 5/325 PO 1 tab Q8H PRN Administration Moderate Pain (4-6) Atorvastatin Calcium 10 mg 09/12/19 21:00 09/12/19 20:53 Lipitor PO 10 mg HS GRACE Administration Fish Oil 1,000 mg 09/13/19 09:00 09/13/19 09:15 Fish Oil PO 1,000 mg DAILY GRACE Administration Folic Acid 1 mg 09/13/19 09:00 09/13/19 09:14 Folvite PO 1 mg DAILY GRACE Administration Metoprolol Tartrate 5 mg 09/12/19 20:00 09/12/19 20:53 Lopressor IVP 5 mg Q6H PRN Administration To Control Heart Rate Sodium Chloride 10 ml 09/12/19 18:20 09/12/19 20:55 Flush - Normal Saline IVF 10 ml PRN PRN Administration Saline Flush - Exam General Appearance: NAD, awake alert Eye: PERRL, anicteric sclera ENT: normocephalic atraumatic, no oropharyngeal lesions Neck: no JVD Heart: RRR, no murmur, no gallops, no rubs Respiratory: CTAB, no wheezes, no rales, no ronchi Gastrointestinal: soft, non-tender, non-distended, normal bowel sounds Extremities: no cyanosis, no clubbing, no edema Skin: normal turgor, no lesions, no rashes Neurological: cranial nerve grossly intact, normal sensation to touch, no new deficit Musculoskeletal - other findings: right wrist tenderness and pain. He is able to move the wrist Psychiatric: normal affect, normal behavior, A&O x 3 Hosp A/P - Plan Right hand X ray: severe right hand osteoarthrosis MRI brain: no stroke This is a 78 year old male with history of lung cancer presenting with joint pains, gait unsteadiness, and afib with RVR #Gait instability - due to tachycardia on ambulation will hydrate with IV fluids. Orthostatic negative but BP 99 systolic -PT recommended using a walker - MRI brain negative - continue aspirin 81 mg and atorvastatin Afib with RVR - s/p metoprolol 5 mg in the ER and therapeutic lovenox. Will hydrate with IV fluids - metoprolol prn for HR > 110 and SBP > 100 - will start on eliquis 5 mg bid Hypomagnesemia - mag 0.6 on admission. S/p 4 grams of IV magnesium. Repeat 1.7, given another 1 gram today. Will repeat magnesium tomorrow Lung cancer s/p thoracotomy - s/p recent chemo - per ER doctor PET scan was negative CKD - pt reports that he was on chemotherapy agent that destroyed his kidney and is currently on alternative chemo regimen - creatinine improving to 0.162 - hydrate with IV fluids - UA negative Hypertension - controlled - will hold amlodipine for now #Right wrist arthritis - tylenol prn
[2019-09-13] MEDS ORDERED: Metoprolol Tartrate 25 MG TAB PO PRN (16:48)
[2019-09-13] MEDS: Sodium Chloride 0.9% 1,000 ML IV SCH (17:13)
[2019-09-13] MEDS: Apixaban 5 MG TAB PO SCH (20:59)
[2019-09-13] MEDS: Atorvastatin Calcium 10 MG TAB PO SCH (20:59)
[2019-09-14] MEDS: Sodium Chloride 0.9% 1,000 ML IV SCH (03:04)
[2019-09-14 05:12] LABS: Hemoglobin 9.4 g/dL (14.0-18.0); Mean Corpuscular HGB CONC 32.2 g/dL (32.0-36.0); Mean Corpuscular Hemoglobin 27.9 pg (27.0-31.0); Mean Corpuscular Volume 86.7 fL (78.0-98.0); Mean Platelet Volume 8.5 fL (7.4-10.4); Platelet Count 211 thou/uL (130-400); RBC Distribution Width 13.9 % (11.5-14.5); Red Blood Cell (RBC) Count 3.38 mill/uL (4.70-6.10); White Blood Cell (WBC) Count 5.1 thou/uL (4.8-10.8)
[2019-09-14 05:37] LABS: Anion Gap 14 mmol/L (10-20); BUN (Urea Nitrogen) 38 mg/dL (8.4-25.7); Calc. Creatinine Clearance 52 mL/min (70-130); Calcium 6.9 mg/dL (7.8-10.44); Carbon Dioxide 21 mmol/L (23-31); Chloride 106 mmol/L (98-107); Estimated GFR-MDRD 48; Glucose 97 mg/dL (83-110); Magnesium 1.3 mg/dL (1.6-2.6); Potassium 4.1 mmol/L (3.5-5.1); Sodium 137 mmol/L (136-145)
[2019-09-14] MEDS ORDERED: Magnesium 2 GM/50 ML 2 GM in Premix Bag 1 BAG IVPB SCH ×2 (06:15→19:15)
[2019-09-14] MEDS: HYDROcodone/Acetaminophen 5/325 mg Tablet PO PRN ×2 (06:41→14:26)
[2019-09-14] MEDS: Apixaban 5 MG TAB PO SCH ×2 (09:18→20:32)
[2019-09-14] MEDS: Folic Acid 1 MG TAB PO SCH (09:18)
[2019-09-14] MEDS: Fish Oil 1,000 MG CAP PO SCH (09:18)
[2019-09-14 10:02] LABS: ALT (SGPT) 8 U/L (8-55); AST (SGOT) 10 U/L (5-34); Albumin 3.3 g/dL (3.4-4.8); Alkaline Phosphatase 57 U/L (40-110); Bilirubin, Direct 0.3 mg/dL (0.1-0.3); Bilirubin, Total 0.5 mg/dL (0.2-1.2); Protein, Total 6.5 g/dL (5.8-8.1)
[2019-09-14 10:20] LABS: Thyroid Stimulating Hormone 3.1851 uIU/mL (0.35-4.94); Vitamin D, 25 Hydroxy 25.2 ng/ml (> 30.0)
[2019-09-14] MEDS ORDERED: Calcium Gluconate 4.6 MEQ in Sodium Chloride 0.9% 100 ML IVPB ONE (12:07)
[2019-09-14 14:37] LABS: Calcium 7.2 mg/dL (7.8-10.44)
[2019-09-14 14:43] LABS: Magnesium 1.6 mg/dL (1.6-2.6)
[2019-09-14 18:46] LABS: Calcium 7.8 mg/dL (7.8-10.44); Magnesium 1.5 mg/dL (1.6-2.6)
[2019-09-14] MEDS ORDERED: Magnesium Oxide 400 MG TAB PO SCH (19:00)
--- NOTE | 2019-09-14 19:04 | PDOC.HOSPP ---
- Subjective Encounter Date: 09/14/19 Encounter Time: 10:30 Subjective: The patient is doing well. No palpitations, dizziness or weakness while ambulating. He converted to sinus rhythm. Tele showed Wenkebach today with heart rate down in the 30's He reports feeling better today compared to yesterday - Objective Vital Signs & Weight: Vital Signs (12 hours) Temp Pulse Pulse Pulse Resp BP BP 09/14/19 18:54 97.7 F 70 20 124/65 09/14/19 15:33 98.2 F 69 16 09/14/19 11:54 97.7 F 71 16 09/14/19 08:55 66 72 137/63 09/14/19 07:49 98.1 F 69 16 BP BP BP Pulse Ox 09/14/19 18:54 99 09/14/19 15:33 121/60 97 09/14/19 11:54 134/67 96 09/14/19 08:55 105/56 L 09/14/19 07:49 100/58 L 95 Weight Weight 186 lb 8 oz I&O: 09/13/19 09/14/19 09/15/19 06:59 06:59 06:59 Intake Total 2420 1740 Output Total 550 850 Balance -550 1570 1740 Result Diagrams: 09/14/19 04:47 09/14/19 04:47 Hospitalist ROS - Review of Systems Constitutional: denies: fever, chills - Medication Medications: Active Medications Generic Name Dose Route Start Last Admin Trade Name Freq PRN Reason Stop Dose Admin Hydrocodone Bitart/Acetaminophen 1 tab 09/12/19 19:33 09/14/19 14:26 [place] 5/325 PO 1 tab Q8H PRN Administration Moderate Pain (4-6) Apixaban 5 mg 09/13/19 21:00 09/14/19 09:18 Eliquis PO 5 mg BID GRACE Administration Atorvastatin Calcium 10 mg 09/12/19 21:00 09/13/19 20:59 Lipitor PO 10 mg HS GRACE Administration Fish Oil 1,000 mg 09/13/19 09:00 09/14/19 09:18 Fish Oil PO 1,000 mg DAILY GRACE Administration Folic Acid 1 mg 09/13/19 09:00 09/14/19 09:18 Folvite PO 1 mg DAILY GRACE Administration Metoprolol Tartrate 5 mg 09/12/19 20:00 09/12/19 20:53 Lopressor IVP 5 mg Q6H PRN Administration To Control Heart Rate Pantoprazole Sodium 40 mg 09/14/19 09:00 09/14/19 09:18 Protonix PO 40 mg DAILY GARCE Administration Sodium Chloride 10 ml 09/12/19 18:20 09/12/19 20:55 Flush - Normal Saline IVF 10 ml PRN PRN Administration Saline Flush - Exam General Appearance: NAD, awake alert Eye: PERRL, anicteric sclera ENT: normocephalic atraumatic, no oropharyngeal lesions Neck: supple, no JVD Heart: RRR, no murmur, no gallops, no rubs Respiratory: CTAB, no wheezes, no rales, no ronchi Gastrointestinal: soft, non-tender, non-distended, normal bowel sounds Extremities: no cyanosis, no clubbing, no edema Skin: normal turgor, no lesions, no rashes Neurological: cranial nerve grossly intact, normal sensation to touch, no focal deficits, no new deficit Musculoskeletal: normal tone, normal strength, no muscle wasting Psychiatric: normal affect, normal behavior, A&O x 3 Hosp A/P - Plan Right hand X ray: severe right hand osteoarthrosis MRI brain: no stroke This is a 78 year old male with history of lung cancer presenting with joint pains, gait unsteadiness, and afib with RVR Afib with RVR- resolved Hypomagnesemia Hypocalcemia Mobitz type I wenkebach -converted to sinus rhythm - Mg 0.6 on admission, s/p 4 gram Mg. Repeat 1.7, s/p 1 gram Mg 09/12. Repeat 1.3 09/13, s/p 2 gram Mg. repeat Mg 1.5, give another 2 grams IV mag - calcium 6.9, given 1 gram calcium gluconate today - continue eliquis for anticoagulation - metoprolol prn #Gait instability - improved - MRI Brain negative for stroke. He - due to tachycardia on ambulation will hydrate with IV fluids. Orthostatic negative but BP 99 systolic -PT recommended using a walker - continue statin Lung cancer s/p thoracotomy - s/p recent chemo - per ER doctor PET scan was negative MARYLOU on CKD - pt reports that he was on chemotherapy agent that destroyed his kidney and is currently on alternative chemo regimen - creatinine improving to 1.42 with IV fluids - UA negative Hypertension - controlled - continue hold amlodipine for now #Right wrist arthritis - tylenol prn
[2019-09-14] MEDS ORDERED: Acetaminophen 325 MG TAB PO PRN (19:10)
[2019-09-14] MEDS: Atorvastatin Calcium 10 MG TAB PO SCH (20:32)
--- NOTE | 2019-09-14 23:44 | PDOC.EVN ---
Event Note - Event Note Event Note: Nurse reported 5 second pause, VS stable, patient asymptomatic. BMP and Mag in am. Placed cardiology consult for am.
[2019-09-15 05:04] LABS: Hemoglobin 9.6 g/dL (14.0-18.0); Mean Corpuscular HGB CONC 31.5 g/dL (32.0-36.0); Mean Corpuscular Hemoglobin 27.7 pg (27.0-31.0); Mean Platelet Volume 8.7 fL (7.4-10.4); Platelet Count 209 thou/uL (130-400); RBC Distribution Width 13.7 % (11.5-14.5); Red Blood Cell (RBC) Count 3.45 mill/uL (4.70-6.10); White Blood Cell (WBC) Count 3.8 thou/uL (4.8-10.8)
[2019-09-15 05:25] LABS: Magnesium 1.9 mg/dL (1.6-2.6); Phosphorus 3.2 mg/dL (2.3-4.7)
[2019-09-15] MEDS: Apixaban 5 MG TAB PO SCH (08:20)
[2019-09-15] MEDS: Folic Acid 1 MG TAB PO SCH (08:20)
[2019-09-15] MEDS: Fish Oil 1,000 MG CAP PO SCH (08:21)
[2019-09-15] MEDS ORDERED: Cholecalciferol (Vitamin D3) 400 UNITS TAB PO SCH (09:00)
--- NOTE | 2019-09-15 10:02 | CON ---
DATE OF CONSULTATION: 09/15/2019 REASON FOR CONSULTATION: High-degree AV block. HISTORY OF PRESENT ILLNESS: Mr. Hayes is a very pleasant 78-year-old white gentleman, who comes to the hospital for hand pain. He had severe right hand pain, he thinks is from arthritis, but it was so painful that he felt he could not grab anything with them. So, he was admitted to make sure this was not a stroke and that is why he was weak. CT of the brain was negative. MRI of the brain showed chronic stable findings, but no acute CVA or chronic CVAs. He was watched overnight and he had a 5.4 second pause. Looking at the tracing on the monitor, he has P waves, but they did not conduct. So it is probably just a high-degree AV block. Talking to Mr. Hayes, this was at 10:44 p.m. last night, he was asleep at that time. I also spoke with the nurse and she told me that he was sleeping at that time as well. When they walked into the room, they have to wake him up. He denies any chest pain, tightness, pressure. He has never had syncope in the past. He does have a history of lung cancer. He had resection in July. He also has a history of a paroxysmal atrial fibrillation in the past and he has never been on any anticoagulation for this. PAST MEDICAL HISTORY: 1. History of paroxysmal AFib. 2. Hypertension. 3. Hyperlipidemia. 4. Stage III lung cancer status post resection. 5. BPH. 6. Chronic renal insufficiency. 7. Hematuria. PAST SURGICAL HISTORY: 1. One cataract removal. 2. Retinal surgery. 3. Left thoracotomy for resection of stage III lung cancer. 4. Tonsillectomy. SOCIAL HISTORY: Former smoker quit 2 years ago. Heavy alcohol use every day. He drinks vodka multiple glasses a day. Denies any drug use. OUTPATIENT MEDICATIONS: 1. Folic acid 1 mg a day. 2. Amlodipine 5 mg a day. 3. Losartan 50 mg a day. 4. Fish oil. 5. Omeprazole 20 mg a day. 6. Aspirin 81 a day. 7. Pravastatin 40 mg at bedtime. ALLERGIES: PENICILLIN AND TETRACYCLINE. REVIEW OF SYSTEMS: A 12-point review of systems was done and was all negative unless stated in the history of present illness. PHYSICAL EXAMINATION: VITAL SIGNS: Temperature 97.9, pulse 68, respiratory rate 20, saturating 95% on room air, blood pressure 99/57. GENERAL: Awake, alert, and oriented x3, in no distress. HEENT: Normocephalic and atraumatic. NECK: Supple. LUNGS: Clear. CARDIOVASCULAR: S1 and S2. No S3 or S4. There is a grade 2/6 systolic murmur at the right upper sternal border. ABDOMEN: Soft. Positive bowel sounds. EXTREMITIES: No edema. SKIN: Warm and dry. LABORATORY DATA: Laboratory work was reviewed. White count of 3.8, hemoglobin of 9.6, hematocrit of 30, platelet count of 209. Chemistry showed normal potassium, BUN at 38, creatinine was 1.42, GFR was 48. His magnesium is 1.9 this morning, just slightly under 1.5 last night. It was replaced. PTH was high at 327. Vitamin D was low at 25. TSH was normal. Albumin was 3.3. UA was unremarkable, except for 4 to 6 white cells. IMAGING STUDIES: EKG was reviewed normal sinus rhythm. Telemetry was reviewed, normal sinus. When he had the event, he was in sinus bradycardia in the 50s and he had a complete heart block with ventricular standstill 5.4 seconds of worth. He states he was sleeping at that time as well as the nursing records state he was sleeping. ASSESSMENT AND PLAN: 1. High-degree atrioventricular block. 2. Paroxysmal atrial fibrillation. 3. Alcohol abuse. PLAN: 1. Currently, Mr. Hayes tells me that he has been diagnosed with sleep apnea in the past, but he tells me he has never had a sleep study. He was sleeping during his 5.4 second pause. 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 He will most likely benefit from a pacemaker. Talking with Mr. Hayes, currently he is not interested in having a pacemaker placed. I voiced my concern that if this was to happen while he is awake, he could have a syncopal spell that could be his demise, especially if he is driving and he tells me that he stopped driving about a year ago. He tells me that whatever I say he is really not interested in getting a pacemaker at this time, but he may change his mind and actually, he asked for my card, so he could follow up if he ever changes his mind. Currently, I would recommend against driving given the possibility of syncope. He has never had a syncopal spell before and this was during his sleep, so may as well be related to some level of sleep apnea that is currently undiagnosed. Either way, he is not interested in a pacemaker. I would recommend against any AV ena blocking agents at this time given that this may make his high-degree AV block at night be a lot worse. He wants to continue Eliquis for stroke prophylaxis. I would be hesitant to do this at this time given his alcohol use. It feels to me that he just wants to go home to continue drinking. He tells me that he is at the end of his life, and he does not want to be dealing with any anything else at this time. I would recommend probably just an aspirin alone for stroke prophylaxis given his alcohol use. 2. I provided him with my card and will try to set him up for a followup appointment in 4 to 6 weeks. Thank you for letting us to participate in the care of your patient. We will sign off. Please call with any questions. Job ID: [id number]
[2019-09-15 10:50] LABS: Anion Gap 13 mmol/L (10-20); BUN (Urea Nitrogen) 28 mg/dL (8.4-25.7); Calc. Creatinine Clearance 61 mL/min (70-130); Calcium 8.3 mg/dL (7.8-10.44); Carbon Dioxide 22 mmol/L (23-31); Chloride 104 mmol/L (98-107); Estimated GFR-MDRD 58; Glucose 67 mg/dL (83-110); Potassium 4.4 mmol/L (3.5-5.1); Sodium 135 mmol/L (136-145)
[2019-09-15 11:34] VITALS: BP 137/63; TEMP 98.4
--- NOTE | 2019-09-15 12:31 | DIS ---
DATE OF ADMISSION: 09/14/2019 DATE OF DISCHARGE: 09/15/2019 DISCHARGE DIAGNOSES: 1. Dehydration. 2. Right upper extremity weakness secondary to osteoarthritis. 3. Gait instability secondary to dehydration. 4. Acute kidney injury. 5. Atrial fibrillation with rapid ventricular response. 6. Hypomagnesemia. 7. Hypocalcemia. 8. 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 9. Obstructive sleep apnea. 10. Vitamin D deficiency. CONSULTATIONS: Cardiology with Dr. Omar Mcgraw. PROCEDURES: None. BRIEF HISTORY OF PRESENT ILLNESS: This is a 78-year-old male with a past medical history of lung cancer, status post resection, atrial fibrillation, who presented to the ER with joint pain in his upper extremities and his lower extremities that started 4 to 5 days prior. He was unable to hold a coffee cup secondary to his pain. He also reported dizziness when sitting on the edge of the bed and unsteady gait while walking. He underwent CT scan of his head in [facility], which was negative. He was admitted for further workup for TIA/stroke workup. HOSPITAL COURSE: 1. Right upper extremity weakness/unsteady gait, likely secondary to dehydration/arthritis: The patient underwent an MRI of his brain, which showed no evidence of a stroke. He had a right hand x-ray done, which showed right hand osteoarthrosis. His blood pressure was noted to be on the lower side of 99 systolic. While ambulating, the patient's heart rate had increased to 150. He was given IV fluids with improvement in his gait. He was seen by Physical Therapy, who felt he was safe for discharge 2. Hypomagnesemia: The patient had presented with a magnesium level of 0.6 on admission. He had cereal magnesium done, which were persistently in low and had daily replacement with IV magnesium. His repeat magnesium on the day of discharge was 1.9. 3. Hypocalcemia: The patient had a calcium of 6.4 at [facility]. He was given IV calcium supplementation. His calcium levels were trended and he continued to receive IV calcium supplementation on the and . His calcium level on the day of discharge was 8.3. 4. Atrial fibrillation with RVR/possible tachycardia-bradycardia syndrome/type I Wenckebach: The patient was initially given metoprolol IV for his uncontrolled atrial fibrillation. He did convert out of atrial fibrillation after given IV fluids. However, during the day on 09/13, he did have an episode with a type I Wenckebach with his heart rate in the 30s. Further beta-leighton was discontinued. On the night, the patient had a 5-second pause. Cardiology was consulted. The patient states he does have a history of sleep apnea and does not wear a CPAP mask. He was advised to wear a CPAP mask on discharge. Cardiology offered the patient a pacemaker, however, the patient refused. He was started on Eliquis for anticoagulation in the hospital. He was prescribed this on discharge. The patient states that he was a former heavy drinker, however, quit drinking 2 months ago. It was recommended that he quit drinking on discharge considering that he is on a blood thinner. He will follow up with Dr. Mcgraw in 4 weeks. 5. Acute kidney injury: The patient had presented with a creatinine of 1.62. He was given IV fluids and his creatinine improved to 1.22 on the day of discharge. He was advised to have a repeat BMP in a week. 6. Hypertension: The patient had blood pressures of 99 to 100 while in the hospital. His amlodipine was discontinued on discharge. DISCHARGE PHYSICAL EXAMINATION: VITAL SIGNS: Temperature 97.9, heart rate 68, respiratory rate 20, O2 saturation 95% on room air, and blood pressure 99/57. GENERAL: The patient is alert, awake, and oriented x3. CVS: Regular rate and rhythm with no murmurs, rubs, or gallops. LUNGS: Clear to auscultation bilaterally. ABDOMEN: Positive bowel sounds. Soft, nontender, and nondistended. EXTREMITIES: The patient has right wrist tenderness on exam. He is able to move his right wrist in a upper [place]. PERTINENT LABORATORY DATA: CBC on 09/14: White count 3.8, hemoglobin 9.6, hematocrit 30.3, and platelet count 209. BMP on 09/14: Sodium is 135, creatinine is 1.22. Rest of BMP is unremarkable. Magnesium: 1.9. LFTs: AST 10, ALT 8, and alkaline phosphatase 57. Vitamin D: 25.2. PTH: 327.3. TSH: 3.18. Lipid panel: Triglycerides 90, LDL 92, and HDL 26. UA: Negative. IMAGING DATA: Hand x-ray on 09/11: Shows scattered osteoarthrosis of the right hand. MRI brain on 09/12: Shows no acute infarct. Chronic small-vessel ischemic changes. Echo on 09/12: Shows EF of 60% to 65%. Mild MR. Sclerotic aortic valve. Mild TR. DISCHARGE CONDITION: Stable. ACTIVITY: As tolerated. DIET: Regular diet. DISCHARGE INSTRUCTIONS: The patient should follow up with his PCP in [address] Mcgraw in 4 weeks. He should have his creatinine level rechecked in a week and his vitamin D level rechecked in 4 weeks. DISCHARGE MEDICATIONS: 1. Eliquis 5 mg p.o. b.i.d. 2. Cholecalciferol 800 units p.o. daily. DISCONTINUED MEDICATIONS: Amlodipine. All other home medications were resumed. Job ID: [id number] MTDD
== END 2019-09-15 13:05 | disposition home or self-care (01) | DRG 309 ==
LOC: 2SE 18:00 → OBSVTOIN 09-14 19:04
PROVIDERS: ADMIT Internal Medicine; ATTEND Internal Medicine
DX: I48.0 Paroxysmal atrial fibrillation (principal); N17.9 Acute kidney failure, unspecified; M19.041 Primary osteoarthritis, right hand; Z66 Do not resuscitate; E86.0 Dehydration; E83.39 Other disorders of phosphorus metabolism; I12.9 Hypertensive chronic kidney disease with stage 1 through stage 4 chronic kidney disease, or unspecified chronic kidney disease; E78.5 Hyperlipidemia, unspecified; N18.9 Chronic kidney disease, unspecified; F10.10 Alcohol abuse, uncomplicated; G47.33 Obstructive sleep apnea (adult) (pediatric); E55.9 Vitamin D deficiency, unspecified; E83.51 Hypocalcemia; I44.1 Atrioventricular block, second degree; Z85.118 Personal history of other malignant neoplasm of bronchus and lung; Z79.899 Other long term (current) drug therapy; Z79.82 Long term (current) use of aspirin; Z87.891 Personal history of nicotine dependence; Z88.0 Allergy status to penicillin
CPT/HCPCS: 36415; 70551; 80048; 80061; 80076; 81001; 82306; 82553; 83735; 83970; 84100; 84443; 84484; 85025; 85027; 87086; 93005; 93010; 93306; J1650; J3475; J3490

== ENCOUNTER 2020-04-17 09:45 | Outpatient (CLI) | payer MEDICARE, BC ==
[~2020-04-17 09:45] MED LIST changes: +Iopamidol-370 76% 500 ML 1 ML ONE; -Lidocaine 1% PF 5 ML VIAL ONE
--- NOTE | 2020-04-17 11:31 | CT ---
CT chest with IV contrast HISTORY: Malignant neoplasm of left upper lobe. Lung cancer. Comparison: 08/28/2019 and 09/28/2019. FINDINGS: Areas of parenchymal scarring throughout each lung are again demonstrated, most notably at the medial aspect of the left lung apex. Peripheral atelectasis at the left lower lobe is stable. Scattered areas of calcified and noncalcified pleural plaques are unchanged in appearance. No new parenchymal lung mass. High within the left prevascular space of the mediastinum, where there was concern for a lymph node o n 08/28/2019, the node is smaller on today's study, measuring 0.9 cm greatest diameter. No enlarged mediastinal lymph nodes are evident. Right internal jugular Mediport is in place. There is prominent calcification of the arterial structu res including narrowing at the origin of the left subclavian artery, likely greater than 50%. Old healed and ununited left rib fractures are stable. IMPRESSION : No evidence of mediastinal adenopathy or new abnormality. The left upper prevascular lymph node has d ecreased in size compared to 08/28/2019 exam. Parenchymal scarring, pleural plaques, and other chronic-type findings are stable. 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
== END 2020-04-17 09:46 | disposition home or self-care (01) ==
LOC: BICCT 09:45
PROVIDERS: ATTEND Internal Medicine Hematology & Oncology
DX: Z08 Encounter for follow-up examination after completed treatment for malignant neoplasm (principal); I70.8 Atherosclerosis of other arteries; Z85.118 Personal history of other malignant neoplasm of bronchus and lung; Z92.3 Personal history of irradiation; Z92.21 Personal history of antineoplastic chemotherapy
CPT/HCPCS: 71260; 82565; Q9967

== ENCOUNTER 2020-07-16 08:59 | Outpatient (CLI) | payer MEDICARE ==
[2020-07-16] MEDS ORDERED: Iopamidol 370 76% 100 ML VIAL ONE (13:19)
== END 2020-07-16 09:00 | disposition home or self-care (01) ==
LOC: CT 08:59
PROVIDERS: ATTEND Internal Medicine Hematology & Oncology
DX: C34.12 Malignant neoplasm of upper lobe, left bronchus or lung (principal); J92.9 Pleural plaque without asbestos
CPT/HCPCS: 71260; Q9967

== ENCOUNTER 2020-10-11 12:11 | Outpatient (CLI) | payer MEDICARE | END 2020-10-11 12:12 | disposition home or self-care (01) | LOC: CT 12:11 | PROVIDERS: ATTEND Internal Medicine Hematology & Oncology | DX: C34.12 Malignant neoplasm of upper lobe, left bronchus or lung (principal); J98.11 Atelectasis; Z98.890 Other specified postprocedural states | CPT/HCPCS: 71260; 80053; 82248; 82565; 83615; 83735; 84100; 84550 ==

== ENCOUNTER 2020-11-23 14:03 | Emergency (ER) | payer MEDICARE ==
[2020-11-23] MEDS ORDERED: Acetaminophen 500 MG TAB ONE (16:16)
== END 2020-11-23 16:27 | disposition home or self-care (01) ==
LOC: ERS 14:03
DX: K12.1 Other forms of stomatitis (principal); K05.10 Chronic gingivitis, plaque induced; E78.5 Hyperlipidemia, unspecified; I10 Essential (primary) hypertension; Z87.891 Personal history of nicotine dependence; Z79.899 Other long term (current) drug therapy
CPT/HCPCS: 99282

== ENCOUNTER 2021-01-15 11:46 | Outpatient (CLI) | payer MEDICARE ==
[~2021-01-15 11:46] MED LIST changes: +Iopamidol 370 76% 100 ML VIAL ONE; -Iopamidol-370 76% 500 ML 1 ML ONE
== END 2021-01-15 11:47 | disposition home or self-care (01) ==
LOC: CT 11:46
PROVIDERS: ATTEND Internal Medicine Hematology & Oncology
DX: C34.12 Malignant neoplasm of upper lobe, left bronchus or lung (principal); M54.2 Cervicalgia; R91.1 Solitary pulmonary nodule; M47.812 Spondylosis without myelopathy or radiculopathy, cervical region; I65.23 Occlusion and stenosis of bilateral carotid arteries; Z98.890 Other specified postprocedural states
CPT/HCPCS: 70491; 71260; 82565; Q9967

== ENCOUNTER 2021-04-11 11:45 | Outpatient (CLI) | payer MEDICARE | END 2021-04-11 11:46 | disposition home or self-care (01) | LOC: CT 11:45 | PROVIDERS: ATTEND Internal Medicine Hematology & Oncology | DX: C34.12 Malignant neoplasm of upper lobe, left bronchus or lung (principal); R91.1 Solitary pulmonary nodule; E83.42 Hypomagnesemia; J98.4 Other disorders of lung; R59.0 Localized enlarged lymph nodes; Z98.890 Other specified postprocedural states | CPT/HCPCS: 71260; 80053; 83735; 85025 ==

== ENCOUNTER 2021-04-29 10:06 | Outpatient (CLI) | payer MEDICARE | END 2021-04-29 10:07 | disposition home or self-care (01) | LOC: PET 10:06 | PROVIDERS: ATTEND Internal Medicine Hematology & Oncology | DX: C34.12 Malignant neoplasm of upper lobe, left bronchus or lung (principal); R91.1 Solitary pulmonary nodule; R59.0 Localized enlarged lymph nodes | CPT/HCPCS: 78815; A9552 ==

== ENCOUNTER 2021-05-07 12:56 | Outpatient (CLI) | payer MEDICARE ==
[2021-05-08 12:50] LABS: SARS-CoV-2 PCR by NAA Not Detected (NotDetected)
== END 2021-05-07 12:57 | disposition home or self-care (01) ==
LOC: LABBT 12:56
PROVIDERS: ATTEND Internal Medicine
DX: Z01.812 Encounter for preprocedural laboratory examination (principal); R59.0 Localized enlarged lymph nodes; C34.90 Malignant neoplasm of unspecified part of unspecified bronchus or lung; Z20.822 Contact with and (suspected) exposure to COVID-19
CPT/HCPCS: U0003; U0005

== ENCOUNTER 2021-05-15 11:00 | Outpatient (CLI) | payer MEDICARE ==
[2021-05-15 21:34] LABS: SARS-CoV-2 PCR by NAA Not Detected (NotDetected)
== END 2021-05-15 11:01 | disposition home or self-care (01) ==
LOC: LABBT 11:00
PROVIDERS: ATTEND Internal Medicine
DX: Z01.812 Encounter for preprocedural laboratory examination (principal); Z20.822 Contact with and (suspected) exposure to COVID-19
CPT/HCPCS: U0003; U0005

== ENCOUNTER 2021-05-17 10:55 | Day surgery (SDC) | payer MEDICARE ==
[2021-05-14 12:34] VITALS: BMI 25.0
[2021-05-17] MEDS ORDERED: Midazolam HCl 2 mg/2 ml Vial ONE (13:05)
[2021-05-17] MEDS ORDERED: Fentanyl 100 MCG/2 ML VIAL ONE (13:05)
[2021-05-17] MEDS ORDERED: Lidocaine 1% PF 5 ML VIAL ONE (13:16)
[2021-05-17] MEDS ORDERED: PROPOFOL 200 MG/20 ML VIAL ONE (13:16)
[2021-05-17] MEDS ORDERED: Ondansetron PF 4 MG/2 ML Vial ONE (13:16)
[2021-05-17] MEDS ORDERED: Labetalol HCl 100 MG/20 ML VIAL ONE (13:16)
[2021-05-17] MEDS ORDERED: Glycopyrrolate 0.2 MG/ML 5 ML SYRINGE ONE (13:16)
[2021-05-17] MEDS ORDERED: Dexamethasone 20 MG/5 ML VIAL ONE (13:16)
== END 2021-05-17 14:58 | disposition home or self-care (01) ==
LOC: SDC 10:55
PROVIDERS: ATTEND Internal Medicine
PROC: 07D78ZX Extraction of Thorax Lymphatic, Via Natural or Artificial Opening Endoscopic, Diagnostic (ICD-10-PCS; principal; 2021-05-17)
DX: C34.12 Malignant neoplasm of upper lobe, left bronchus or lung (principal); C77.1 Secondary and unspecified malignant neoplasm of intrathoracic lymph nodes; M19.90 Unspecified osteoarthritis, unspecified site; M10.9 Gout, unspecified; E78.00 Pure hypercholesterolemia, unspecified; I10 Essential (primary) hypertension; Z86.73 Personal history of transient ischemic attack (TIA), and cerebral infarction without residual deficits; Z87.891 Personal history of nicotine dependence; Z79.01 Long term (current) use of anticoagulants; Z79.899 Other long term (current) drug therapy; Z88.0 Allergy status to penicillin; Z88.1 Allergy status to other antibiotic agents
CPT/HCPCS: 88173; 88305; J1100; J2250; J2405; J2704; J3010